=== PATIENT | male | born 1950 | race Caucasian/White ===

== ENCOUNTER → 2017-10-05 09:18 | Outpatient (CLI) | payer MEDICARE, SELFPAY ==
[2017-10-05 12:23] LABS: Anion Gap 7 (5-15); BUN 21 mg/dL (7-18); BUN/Creat Ratio 23.1 RATIO (10-20); Calcium,Total 8.8 mg/dL (8.5-10.1); Chloride 103 mmol/L (98-107); Creatinine, Serum 0.91 mg/dL (0.70-1.30); EST Glomerular Filtration Rate 89 mL/min (>60); Est Glom Filt Rate - Afr Amer 107 mL/min (>60); Glucose 101 mg/dL (74-106); Potassium 4.2 mmol/L (3.5-5.1); Sodium Level 136 mmol/L (136-145)
== END ==
PROVIDERS: Family Provider Family Medicine; PCP Family Medicine; Visit Provider Family Medicine
DX: I10 Essential (primary) hypertension (principal)
CPT/HCPCS: 36415; 80048

== ENCOUNTER → 2018-10-10 11:14 | Outpatient (CLI) | payer MEDICARE, SELFPAY ==
--- NOTE | 2018-10-10 11:19 | RAD_ITS ---
STUDY: X-RAY CHEST REASON FOR EXAM: Male, 68 years old. TECHNIQUE: COMPARISON: None. FINDINGS: The lungs are clear and expanded. There is no demonstrated pleural abnormality. Normal size heart. Normal mediastinum and yadiel. Normal visualized pulmonary arteries. Normal visualized aortic arch and descending thoracic aorta. Normal visualized thoracic spine. Normal visualized ribs, clavicles, and shoulders. There is no demonstrated abnormality of the visualized soft tissue structures of the upper abdomen. RAD/Chest PA and Lateral IMPRESSION: Normal x-ray examination of the chest. Electronically Signed: Philip Carter, at 14:33 EDT Tel , Service support ,
== END ==
PROVIDERS: Family Provider Family Medicine; PCP Family Medicine; Referring Provider Internal Medicine Pulmonary Disease; Visit Provider Internal Medicine Pulmonary Disease
DX: R09.02 Hypoxemia (principal)
CPT/HCPCS: 71046

== ENCOUNTER → 2018-10-29 | Outpatient (CLI) | payer MEDICARE, SELFPAY ==
[2018-10-29 14:05] LABS: Anion Gap 6 (5-15); BUN 15 mg/dL (7-18); BUN/Creat Ratio 15.7 RATIO (10-20); Calcium,Total 8.8 mg/dL (8.5-10.1); Chloride 104 mmol/L (98-107); Cholesterol 173 mg/dL (200); Creatinine, Serum 0.96 mg/dL (0.70-1.30); EST Glomerular Filtration Rate 83 mL/min (>60); Est Glom Filt Rate - Afr Amer 101 mL/min (>60); Glucose 86 mg/dL (74-106); High Density Lipoprotein 35 mg/dL; PSA,Total - Annual Screen 0.53 ng/mL (0.00-4.00); Potassium 4.4 mmol/L (3.5-5.1); Sodium Level 139 mmol/L (136-145); Triglycerides 163 mg/dL; Very Low Density Lipoprotein 33 mg/dL (5-40)
[2018-10-29 14:06] LABS: Vitamin D,25 Hydroxy 20.3 ng/mL (29.95-100.01)
== END | disposition home or self-care (01) ==
LOC: MFPLAB 12:03
PROVIDERS: Family Provider Family Medicine; PCP Family Medicine; Visit Provider Family Medicine
DX: Z00.00 Encounter for general adult medical examination without abnormal findings (principal); Z12.5 Encounter for screening for malignant neoplasm of prostate
CPT/HCPCS: 36415; 80048; 80061; 82306; 84153; G0103

== ENCOUNTER → 2018-12-20 07:40 | Outpatient (CLI) | payer MEDICARE, SELFPAY ==
--- NOTE | 2018-12-20 07:42 | CT_ITS ---
STUDY: CT CHEST WITHOUT CONTRAST REASON FOR EXAM: Male, 68 years old. History of interstitial lung disease. RADIATION DOSAGE (If Supplied By Facility): CTDIvol = ( 17.84 ) mGy, DLP = ( 653.07 ) mGycm TECHNIQUE: Transaxial imaging was performed without the administration of intravenous contrast material. Multiplanar coronal and sagittal images were reformatted. Individualized dose optimization techniques were used for this CT. COMPARISON: None. FINDINGS: Small benign-appearing bilateral axillary lymph nodes. Diffuse increased interstitial markings at the lung bases with evidence of bronchiectasis in keeping with a scarring. This also evidence of the increased reticular nodular pattern in both upper lobes. There is no demonstrated pleural abnormality. There are calcifications of the coronary arteries. There are multiple small lymph nodes within the mediastinum, which are normal in size and morphology most compatible with reactive lymph hyperplasia. Normal hilar regions. Normal unenhanced pulmonary arteries. Normal aorta arch and descending thoracic aorta. There are multi-level degenerative changes of the thoracic spine. Small hiatal hernia. Right renal cysts. CT/Chest without Contrast IMPRESSION: Findings in keeping with chronic interstitial fibrosis more pronounced at the lung bases with localized bronchiectasis. Electronically Signed: Meir Castaneda, at 15:44 EDT , Service support ,
== END ==
PROVIDERS: Family Provider Family Medicine; PCP Family Medicine; Referring Provider Internal Medicine Pulmonary Disease; Visit Provider Internal Medicine Pulmonary Disease
DX: J84.9 Interstitial pulmonary disease, unspecified (principal); R09.02 Hypoxemia; M99.03 Segmental and somatic dysfunction of lumbar region
CPT/HCPCS: 71250

== ENCOUNTER → 2018-12-27 09:07 | Outpatient (CLI) | payer MEDICARE, SELFPAY ==
[2018-12-27 10:45] LABS: CRP 4.21 mg/L (0.0-3.0); Rheumatoid Factor < 10.0 IU/mL (<15)
[2018-12-27 10:48] LABS: Erythrocyte Sedimentation Rate 10 mm/hr (0-20)
[2018-12-28 14:08] LABS: Anti-Scleroderma-70 AB <0.2 AI (0.0-0.9)
[2018-12-29 03:06] LABS: Angiotensin Convert Enzyme < 15 U/L (14-82); Cytoplasmic Ab (C-ANCA) <1:20 titer (Neg:<1:20)
[2018-12-31 10:13] LABS: CCP IgG Antibodies 4 units (0-19); Perinuclear Ab (P-ANCA) <1:20 titer (Neg:<1:20)
[2018-12-31 13:34] LABS: ANTINUCLEAR ANTIBODIES DIRECT Positive (Negative); Anti-dsDNA Ab <1 IU/mL (0-9)
== END ==
PROVIDERS: Family Provider Family Medicine; PCP Family Medicine; Referring Provider Family Medicine; Visit Provider Internal Medicine Pulmonary Disease
DX: R09.02 Hypoxemia (principal); I10 Essential (primary) hypertension
CPT/HCPCS: 36415; 82164; 85652; 86038; 86140; 86200; 86225; 86235; 86256; 86431

== ENCOUNTER → 2019-07-30 10:29 | Outpatient (CLI) | payer MEDICARE, SELFPAY ==
--- NOTE | 2019-07-30 10:33 | RAD_ITS ---
STUDY: X-RAY - ABDOMEN/PELVIS REASON FOR EXAM: Male, 69 years old. Flank pain TECHNIQUE: Single AP view of the abdomen / pelvis. COMPARISON: None. FINDINGS: Mild increased markings at the lung bases suggestive of underlying atelectasis and/or scarring. There is a moderate amount of colonic fecal material. I suspect a 3.7 mm calculus in the midportion of the left ureter overlying the transverse process of the L3 vertebrae on the left side. There are calcified phleboliths in the pelvis. There are mild degenerative changes of the visualized lumbar spine. RAD/Abdomen Single View IMPRESSION: Findings suggestive of a 3.7 mm calculus in the midportion of the left ureter. Electronically Signed: Meir Castaneda, at 14:49 EDT , Service support ,
[2019-07-30 12:13] LABS: Absolute Lymphocyte Count 1.08 X10^3/uL (0.83-4.51); Absolute Neutrophil Count 9.8 X10^3/uL (2.0-7.7); Basophil# 0.03 X10^3/uL; Basophil% 0.3 % (0-1); Eosinophil# 0.03 X10^3/uL; Eosinophils% 0.3 % (0-5); Hematocrit 49.5 % (40-54); Hemoglobin 16.5 g/dL (13.0-16.5); Lymphocyte # 1.08 X10^3/ul (4.0); Lymphocyte % 9.3 % (19-41); Mean Corp Hgb Conc 33.3 g/dL (32-36); Mean Corpuscular Hgb 32.2 pg (27.0-32.0); Mean Corpuscular Volume 96.7 fL (80-94); Mean Platelet Vol. 10.2 fl (6.2-12.0); Monocyte# 0.62 X10^3/uL; Monocyte% 5.3 % (0-10); NRBC Flagged by Analyzer 0 % (0-5); Neutrophil # 9.79 X10^3/uL (2.7-7.7); Neutrophil % 84.1 % (47-70); Platelet Count 284 K/mm3 (150-450); RBC Distribution Width CV 11.9 % (11.6-14.6); RBC Distribution Width SD 42.3 fl (35.1-43.9); Red Blood Count 5.12 M/mm3 (4.6-6.2); White Blood Count 11.6 K/mm3 (4.4-11.0)
[2019-07-30 12:27] LABS: ALB/GLOB Ratio 0.9 RATIO (0.9-2.4); AST(SGOT) 23 U/L (15-37); Alanine Aminotransfer ALT/SGPT 41 U/L (16-61); Albumin, Serum 3.7 g/dL (3.2-5.0); Alkaline Phosphatase 61 U/L (45-117); Anion Gap 5 (5-15); BUN 22 mg/dL (7-18); BUN/Creat Ratio 15.9 RATIO (10-20); Chloride 104 mmol/L (98-107); Creatinine, Serum 1.38 mg/dL (0.70-1.30); EST Glomerular Filtration Rate 54 mL/min (>60); Est Glom Filt Rate - Afr Amer 66 mL/min (>60); Globulin 3.9 g/dL (2.2-4.2); Glucose 119 mg/dL (74-106); Potassium 4.2 mmol/L (3.5-5.1); Protein, Total 7.6 g/dL (6.4-8.2); Sodium Level 137 mmol/L (136-145)
[2019-07-30 12:34] LABS: Hemoglobin A1c 5.9 % (4.2-6.3)
== END ==
PROVIDERS: PCP Family Medicine; Referring Provider Family Medicine; Visit Provider Family Medicine
DX: E11.9 Type 2 diabetes mellitus without complications (principal); R10.9 Unspecified abdominal pain
CPT/HCPCS: 36415; 74018; 80053; 83036; 85025; 87086

== ENCOUNTER → 2019-08-05 10:28 | Outpatient (CLI) | payer MEDICARE, SELFPAY ==
[2019-08-05 12:11] LABS: Anion Gap 6 (5-15); BUN 25 mg/dL (7-18); BUN/Creat Ratio 22.1 RATIO (10-20); Chloride 100 mmol/L (98-107); Creatinine, Serum 1.13 mg/dL (0.70-1.30); EST Glomerular Filtration Rate 69 mL/min (>60); Est Glom Filt Rate - Afr Amer 83 mL/min (>60); Glucose 96 mg/dL (74-106); Potassium 3.7 mmol/L (3.5-5.1); Sodium Level 134 mmol/L (136-145)
== END ==
PROVIDERS: PCP Family Medicine; Referring Provider Family Medicine; Visit Provider Family Medicine
DX: R73.02 Impaired glucose tolerance (oral) (principal)
CPT/HCPCS: 36415; 80048

== ENCOUNTER → 2019-12-25 15:29 | Outpatient (CLI) | payer MEDICARE, SELFPAY ==
--- NOTE | 2019-12-25 15:48 | RAD_ITS ---
STUDY: X-RAY CHEST REASON FOR EXAM: Male, 69 years old. F/U TO PREVIOUS CXR PER PATIENT. TECHNIQUE: Frontal and lateral views of the chest. COMPARISON: 10/10/2018, CT scan 12/20/2018. FINDINGS: Moderate lung volumes. Stable interstitial prominence and fibrosis/scarring in both lung bases. No effusions. Normal size heart. Normal mediastinum and yadiel. Normal visualized pulmonary arteries. Normal visualized aortic arch and descending thoracic aorta. Normal visualized thoracic spine. Normal visualized ribs, clavicles, and shoulders. There is no demonstrated abnormality of the visualized soft tissue structures of the upper abdomen. RAD/Chest PA and Lateral IMPRESSION: No change or acute abnormality. Fibrotic chronic pulmonary disease with scarring in the lung bases. Electronically Signed: Matteo Castro MD at 20:59 EDT , Service support ,
[2019-12-25 19:06] LABS: CRP < 2.90 mg/L (0.0-3.0)
[2019-12-25 19:23] LABS: Erythrocyte Sedimentation Rate 13 mm/hr (0-20)
== END ==
PROVIDERS: PCP Family Medicine; Referring Provider Internal Medicine Pulmonary Disease; Visit Provider Internal Medicine Pulmonary Disease
DX: J84.10 Pulmonary fibrosis, unspecified (principal)
CPT/HCPCS: 36415; 71046; 85652; 86140

== ENCOUNTER → 2020-01-24 08:47 | Outpatient (CLI) | payer MEDICARE, SELFPAY ==
[2020-01-24 11:12] LABS: Vitamin D,25 Hydroxy 70.6 ng/mL
[2020-01-24 11:17] LABS: Anion Gap 4 (5-15); BUN 23 mg/dL (7-18); BUN/Creat Ratio 22.1 RATIO (10-20); Calcium,Total 8.9 mg/dL (8.5-10.1); Chloride 103 mmol/L (98-107); Cholesterol 179 mg/dL (200); Creatinine, Serum 1.04 mg/dL (0.70-1.30); EST Glomerular Filtration Rate 75 mL/min (>60); Est Glom Filt Rate - Afr Amer 91 mL/min (>60); Glucose 82 mg/dL (74-106); High Density Lipoprotein 52 mg/dL; PSA,Total - Annual Screen 0.76 ng/mL (0.00-4.00); Potassium 3.9 mmol/L (3.5-5.1); Sodium Level 136 mmol/L (136-145); Triglycerides 152 mg/dL; Very Low Density Lipoprotein 30 mg/dL (5-40)
== END ==
PROVIDERS: PCP Family Medicine; Referring Provider Family Medicine; Visit Provider Family Medicine
DX: Z00.00 Encounter for general adult medical examination without abnormal findings (principal); E55.9 Vitamin D deficiency, unspecified; I10 Essential (primary) hypertension; Z12.5 Encounter for screening for malignant neoplasm of prostate
CPT/HCPCS: 36415; 80048; 80061; 82306; 84153; G0103

== ENCOUNTER → 2020-04-22 08:08 | Outpatient (CLI) | payer MEDICARE, SELFPAY ==
--- NOTE | 2020-04-22 08:15 | CT_ITS ---
STUDY: CT CHEST WITHOUT CONTRAST REASON FOR EXAM: Male, 69 years old. ? PULMONARY FIBROSIS RADIATION DOSAGE (If Supplied By Facility): CTDIvol = ( 18.76 ) mGy, DLP = ( 677.40 ) mGycm TECHNIQUE: Transaxial imaging was performed without the administration of intravenous contrast material. Multiplanar coronal and sagittal images were reformatted. Individualized dose optimization techniques were used for this CT. COMPARISON: Comparison is made with prior study dated 12/20/2018. FINDINGS: Stable small benign-appearing bilateral axillary lymph nodes. Hyperinflation. Persistent increased interstitial markings at the lung bases suggestive of bibasilar scarring. There has been a mild degree of progression as compared to prior study. Stable mild increased interstitial markings in the upper lobes suggestive of scarring. There is no demonstrated pleural abnormality. There are calcifications of the coronary arteries. Normal mediastinum. Normal hilar regions. Normal unenhanced pulmonary arteries. Normal aorta arch and descending thoracic aorta. There are multi-level degenerative changes of the thoracic spine. There is no demonstrated abnormality of the visualized upper abdomen. CT/Chest without Contrast IMPRESSION: Slight progression in the increased interstitial markings at the lung bases suggestive of progressive scarring. Stable increased markings in the upper lobes. Electronically Signed: Meir Castaneda, at 15:28 EST , Service support ,
== END ==
PROVIDERS: PCP Family Medicine; Referring Provider Internal Medicine Pulmonary Disease; Visit Provider Internal Medicine Pulmonary Disease
DX: J84.10 Pulmonary fibrosis, unspecified (principal)
CPT/HCPCS: 71250

== ENCOUNTER → 2020-05-08 08:40 | Outpatient (CLI) | payer MEDICARE, SELFPAY ==
[2020-05-08 10:06] LABS: AST(SGOT) 17 U/L (15-37); Alanine Aminotransfer ALT/SGPT 41 U/L (16-61); Albumin, Serum 3.6 g/dL (3.2-5.0); Alkaline Phosphatase 58 U/L (45-117); Bilirubin, Direct 0.36 mg/dL (0.00-0.30); Globulin 3.6 g/dL (2.2-4.2); Protein, Total 7.2 g/dL (6.4-8.2)
== END ==
PROVIDERS: PCP Family Medicine; Referring Provider Family Medicine; Visit Provider Internal Medicine Pulmonary Disease
DX: J84.10 Pulmonary fibrosis, unspecified (principal)
CPT/HCPCS: 36415; 80076

== ENCOUNTER 2020-06-18 12:38 | Outpatient (RCR) | payer MEDICARE, SELFPAY ==
[2020-06-18] MEDS: COVID-19 VACC, MRNA(PFIZER)/PF 30 MCG/0.3 ML SYRINGE IM (18:33)
[2020-07-09] MEDS: COVID-19 VACC, MRNA(PFIZER)/PF 30 MCG/0.3 ML SYRINGE IM (17:45)
== END 2020-06-18 23:59 ==
LOC: IMMUN 12:38
PROVIDERS: PCP Family Medicine; Visit Provider Family Medicine
DX: Z23 Encounter for immunization (principal)
CPT/HCPCS: 0001A; 0002A; 91300

== ENCOUNTER → 2020-08-07 08:40 | Outpatient (CLI) | payer SELFPAY ==
[2020-08-07 10:43] LABS: AST(SGOT) 51 U/L (15-37); Alanine Aminotransfer ALT/SGPT 86 U/L (16-61); Albumin, Serum 3.4 g/dL (3.2-5.0); Alkaline Phosphatase 95 U/L (45-117); Bilirubin, Direct 0.28 mg/dL (0.00-0.30); Globulin 4.5 g/dL (2.2-4.2); Protein, Total 7.9 g/dL (6.4-8.2)
== END ==
PROVIDERS: PCP Family Medicine; Visit Provider Family Medicine
DX: R17 Unspecified jaundice (principal)
CPT/HCPCS: 36415; 80076

== ENCOUNTER → 2020-09-15 11:06 | Outpatient (CLI) | payer MEDICARE, SELFPAY ==
[2020-09-15 12:51] LABS: AST(SGOT) 32 U/L (15-37); Alanine Aminotransfer ALT/SGPT 56 U/L (16-61); Albumin, Serum 3.4 g/dL (3.2-5.0); Alkaline Phosphatase 84 U/L (45-117); Bilirubin, Direct 0.23 mg/dL (0.00-0.30); Globulin 4.3 g/dL (2.2-4.2); Protein, Total 7.7 g/dL (6.4-8.2)
== END ==
PROVIDERS: PCP Family Medicine; Referring Provider Family Medicine; Visit Provider Family Medicine
DX: R17 Unspecified jaundice (principal)
CPT/HCPCS: 36415; 80076

== ENCOUNTER → 2020-12-15 09:14 | Outpatient (CLI) | payer MEDICARE, SELFPAY ==
[2020-12-15 09:45] LABS: AST(SGOT) 24 U/L (15-37); Alanine Aminotransfer ALT/SGPT 44 U/L (16-61); Albumin, Serum 3.6 g/dL (3.2-5.0); Alkaline Phosphatase 69 U/L (45-117); Bilirubin, Direct 0.27 mg/dL (0.00-0.30); Globulin 4.4 g/dL (2.2-4.2)
== END ==
PROVIDERS: PCP Family Medicine; Referring Provider Internal Medicine Critical Care Medicine; Visit Provider Internal Medicine Critical Care Medicine
DX: J84.9 Interstitial pulmonary disease, unspecified (principal)
CPT/HCPCS: 36415; 80076

== ENCOUNTER → 2020-12-31 08:17 | Outpatient (CLI) | payer MEDICARE, SELFPAY ==
--- NOTE | 2020-12-31 08:21 | CT_ITS ---
STUDY: CT CHEST WITHOUT CONTRAST REASON FOR EXAM: Male, 70 years old. ILD. Pulmonary fibrosis. Nonsmoker. RADIATION DOSAGE (If Supplied By Facility): CTDIvol = ( 15.81 ) mGy, DLP = ( 463 ) mGycm TECHNIQUE: Transaxial imaging was performed without the administration of intravenous contrast material. Multiplanar coronal and sagittal images were reformatted. Individualized dose optimization techniques were used for this CT. COMPARISON: Comparison is made with prior examination dated 04/22/2020. FINDINGS: Hyperinflation. Stable increased interstitial markings at the lung bases as well as in the upper lobes in keeping with chronic interstitial fibrosis. There has been essentially no change since prior study. There is no demonstrated pleural abnormality. There are calcifications of the coronary arteries. There are multiple small lymph nodes within the mediastinum, which are normal in size and morphology most compatible with reactive lymph hyperplasia. Normal hilar regions. Normal unenhanced pulmonary arteries. Normal aorta arch and descending thoracic aorta. There are multi-level degenerative changes of the thoracic spine. There is no demonstrated abnormality of the visualized upper abdomen. CT/Chest without Contrast IMPRESSION: Stable increased interstitial markings in both lungs worse in the lower lobes as described. This is in keeping with the interstitial fibrosis. Electronically Signed: Meir Castaneda MD at 14:52 EDT , Service support ,
== END ==
PROVIDERS: PCP Family Medicine; Referring Provider Internal Medicine Critical Care Medicine; Visit Provider Internal Medicine Critical Care Medicine
DX: J84.9 Interstitial pulmonary disease, unspecified (principal); J84.170 Interstitial lung disease with progressive fibrotic phenotype in diseases classified elsewhere
CPT/HCPCS: 71250

== ENCOUNTER → 2021-04-02 10:49 | Outpatient (CLI) | payer MEDICARE, SELFPAY ==
[2021-04-02 13:03] LABS: Anion Gap 8 (5-15); BUN 19 mg/dL (7-18); BUN/Creat Ratio 21.5 RATIO (10-20); Calcium,Total 9.1 mg/dL (8.5-10.1); Chloride 105 mmol/L (98-107); Cholesterol 202 mg/dL (200); Creatinine, Serum 0.88 mg/dL (0.70-1.30); EST Glomerular Filtration Rate 91 mL/min (>60); Est Glom Filt Rate - Afr Amer 110 mL/min (>60); Glucose 96 mg/dL (74-106); High Density Lipoprotein 40 mg/dL; Potassium 4.2 mmol/L (3.5-5.1); Sodium Level 138 mmol/L (136-145); Triglycerides 169 mg/dL; Very Low Density Lipoprotein 34 mg/dL (5-40)
[2021-04-02 13:05] LABS: Vitamin D,25 Hydroxy 74.8 ng/mL
== END ==
PROVIDERS: PCP Family Medicine; Referring Provider Family Medicine; Visit Provider Family Medicine
DX: Z00.00 Encounter for general adult medical examination without abnormal findings (principal); E55.9 Vitamin D deficiency, unspecified; I10 Essential (primary) hypertension; Z12.5 Encounter for screening for malignant neoplasm of prostate
CPT/HCPCS: 36415; 80048; 80061; 82306; 84153; G0103

== ENCOUNTER → 2021-11-22 | Outpatient (CLI) | payer MEDICARE, SELFPAY ==
--- NOTE | 2021-11-23 13:21 | PFT ---
INTRODUCTION: The patient is a 71-year-old male that presents for pulmonary function studies secondary to a diagnosis of pulmonary disease. Respiratory therapy reported good patient effort. Bronchodilators were used during testing. INTERPRETATION: Forced expiration spirometry demonstrates no evidence of a large airways obstructive ventilatory defect. There was no significant response to aerosolized bronchodilators. Spirograms are of good quality and plateau normally. Body plethysmography was performed and revealed a decreased TLC to 3.91 L, 70% of predicted, indicative of a mild restrictive ventilatory impairment. Diffusing capacity by single breath CO is reduced at 40% of predicted. IMPRESSION: Mild restrictive ventilatory impairment with disproportionate reduction in diffusing capacity.
== END | disposition home or self-care (01) ==
LOC: PSN 10:41
PROVIDERS: PCP Family Medicine; Referring Provider Internal Medicine Critical Care Medicine; Visit Provider Internal Medicine Critical Care Medicine
DX: J84.9 Interstitial pulmonary disease, unspecified (principal)
CPT/HCPCS: 94060; 94726; 94729

== ENCOUNTER → 2022-04-05 | Outpatient (CLI) | payer MEDICARE, SELFPAY ==
[2022-04-05 15:44] LABS: Anion Gap 6 (5-15); BUN 21 mg/dL (7-18); BUN/Creat Ratio 22.4 RATIO (10-20); Calcium,Total 9.3 mg/dL (8.5-10.1); Chloride 102 mmol/L (98-107); Cholesterol 183 mg/dL (200); Creatinine, Serum 0.94 mg/dL (0.70-1.30); EST Glomerular Filtration Rate 85 mL/min (>60); Est Glom Filt Rate - Afr Amer 102 mL/min (>60); Glucose 85 mg/dL (74-106); High Density Lipoprotein 40 mg/dL; PSA,Total - Annual Screen 6.28 ng/mL (0.00-4.00); Potassium 4.5 mmol/L (3.5-5.1); Sodium Level 139 mmol/L (136-145); Triglycerides 124 mg/dL; Very Low Density Lipoprotein 25 mg/dL (5-40)
[2022-04-05 15:55] LABS: Vitamin D,25 Hydroxy 102.4 ng/mL
== END | disposition home or self-care (01) ==
LOC: MFPLAB 11:33
PROVIDERS: PCP Family Medicine; Referring Provider Family Medicine; Visit Provider Family Medicine
DX: Z00.00 Encounter for general adult medical examination without abnormal findings (principal); Z12.5 Encounter for screening for malignant neoplasm of prostate; I10 Essential (primary) hypertension
CPT/HCPCS: 36415; 80048; 80061; 82306; 84153; G0103

== ENCOUNTER → 2022-05-24 | Outpatient (CLI) | payer MEDICARE, SELFPAY ==
--- NOTE | 2022-05-24 08:02 | CT_ITS ---
STUDY: CT ABDOMEN AND PELVIS WITHOUT CONTRAST REASON FOR EXAM: Male, 71 years old. GROSS HEMATURIA. Elevated PSA. History of kidney stones. RADIATION DOSAGE (If Supplied By Facility): CTDIvol = ( 13.88 ) mGy, DLP = ( 722.41 ) mGycm TECHNIQUE: Transaxial images were obtained from the dome of the diaphragm to the symphysis pubis without oral contrast, and without intravenous contrast. Sagittal and coronal images were reconstructed. Individualized dose optimization techniques were used for this CT. COMPARISON: None. FINDINGS: Increased linear markings with areas of confluence at the lung bases with subpleural blebs suggestive of a chronic scarring. Coronary artery calcification. Normal liver. Normal gallbladder and extrahepatic biliary system. Normal spleen. Normal pancreas. Normal bilateral adrenal glands. There is a 1.8 cm x 1.7 cm cyst in the anterior lateral aspect of the right kidney in its midportion. There is also evidence of 1.4 cm well-defined hypodense nodule in the posteromedial aspect of the upper pole of the right kidney. This most likely represents a cyst although correlation with ultrasound is recommended for further evaluation. There is a 1.2 cm calculus in the right renal pelvis causing a mild degree of right hydronephrosis. Calcific plaque in the posterior branch of the left intrarenal arterial branches. There is a 3 mm nonobstructive calculus in the lower pole calyx of the left kidney. There is a small hiatal hernia. Normal small intestine. Normal colon. The appendix is visualized and appears normal. There is scattered atherosclerotic calcification of the abdominal aorta, without a demonstrated aneurysm. Normal inferior vena cava. Normal retroperitoneum. Diffuse bladder wall thickening. There is prostatic enlargement. This measures 4.1 cm x 4.7 cm. A central calcification. There is indentation at the bladder base due to the prostatic enlargement. There is a right-sided inguinal hernia containing adipose tissue. Small bilateral inguinal lymph nodes.. Normal osseous structures. CT/Abdomen/Pelvis without Cont IMPRESSION: 1.2 cm calculus in the right renal pelvis causing mild right hydronephrosis. Findings suggestive of a small right renal cysts. Nonobstructive calculus in the lower pole calyx of the left kidney. Prostatic enlargement with calcification and indentation at the bladder base. Bladder wall thickening. Findings suggestive of scarring at the lung bases. Electronically Signed: Meir Castaneda MD at 9:15 EST ,
== END | disposition home or self-care (01) ==
LOC: CT 08:00
PROVIDERS: PCP Family Medicine; Referring Provider Urology; Visit Provider Urology
DX: R31.0 Gross hematuria (principal)
CPT/HCPCS: 74176

== ENCOUNTER → 2022-05-25 | Outpatient (CLI) | payer MEDICARE, SELFPAY ==
--- NOTE | 2022-05-25 07:47 | EKG12_ITS ---
Test Reason : PRE OP Blood Pressure : / mmHG Vent. Rate : 078 BPM Atrial Rate : 078 BPM P-R Int : 142 ms QRS Dur : 090 ms QT Int : 368 ms P-R-T Axes : 041 106 -14 degrees QTc Int : 419 ms Normal sinus rhythm T wave abnormality, consider inferior ischemia Abnormal ECG When compared with ECG of 29-MAR-2002 16:13, QRS axis Shifted right T wave inversion now evident in Inferior leads Nonspecific T wave abnormality now evident in Lateral leads Confirmed by KARRIE ADAMS, CLARA ([id number]), purchasing expeditor MARY TERAN ([id number]) on 05/26/2022 5:45:35 AM Referred By: Wilber Arias Confirmed By:CLARA YOON MD
[2022-05-25 09:02] LABS: Hematocrit 52.3 % (40-54); Hemoglobin 17.3 g/dL (13.0-16.5); Mean Corp Hgb Conc 33.1 g/dL (32-36); Mean Corpuscular Hgb 31.9 pg (27.0-32.0); Mean Corpuscular Volume 96.3 fL (80-94); Mean Platelet Vol. 10.1 fl (6.2-12.0); Platelet Count 288 K/mm3 (150-450); RBC Distribution Width CV 12.5 % (11.6-14.6); RBC Distribution Width SD 44.4 fl (35.1-43.9); Red Blood Count 5.43 M/mm3 (4.6-6.2)
[2022-05-25 09:29] LABS: Anion Gap 4 (5-15); BUN 18 mg/dL (7-18); Calcium,Total 9.3 mg/dL (8.5-10.1); Chloride 103 mmol/L (98-107); EST Glomerular Filtration Rate 78 mL/min (>60); Est Glom Filt Rate - Afr Amer 95 mL/min (>60); Glucose 147 mg/dL (74-106); Potassium 3.9 mmol/L (3.5-5.1); Sodium Level 140 mmol/L (136-145)
== END | disposition home or self-care (01) ==
LOC: PSN 07:46
PROVIDERS: PCP Family Medicine; Referring Provider Urology; Visit Provider Urology
DX: Z01.818 Encounter for other preprocedural examination (principal)
CPT/HCPCS: 36415; 80048; 85027; 93005

== ENCOUNTER → 2022-06-10 | Outpatient (CLI) | payer MEDICARE, SELFPAY ==
--- NOTE | 2022-06-10 07:16 | ECHOCS_ITS ---
Reason For Study: Abnormal EKG Procedure This was a 2D Doppler, Color Flow transthoracic echocardiogram. The study was technically difficult. Contrast injection was performed. Exam performed in department. Left Ventricle Normal size and thickness. The left ventricular ejection fraction is 65 %. Normal diastology for age. Right Ventricle Normal right ventricle. Atria The left atrium is severely enlarged. Normal right atrium. Bubble contrast study is negative for PFO/ASD. Mitral Valve Trivial mitral valve insufficiency. Tricuspid Valve Trivial tricuspid valve insufficiency. Normal pulmonary artery pressure. Aortic Valve Trisinus/trileaflet aortic valve. Mild focal aortic valve thickening. Pulmonic Valve The pulmonic valve is not well visualized. Trivial pulmonic valve insufficiency. Great Vessels Normal sized aortic root. Pericardium/Pleural No pericardial effusion. Medication 20 gauge I.V. with prn adaptor inserted into right arm. Diluted definity 2.5ml given slow IV push to enhance endocardial definition. Performed a rapid injection of agitated mix of 9 cc saline and 1cc air to assess for atrial septal defect. MMode/2D Measurements & Calculations LVIDd: 3.9 cm IVSd: 0.90 cm LA dimension: 5.1 cm LVIDs: 2.8 cm LVPWd: 0.98 cm FS: 27.8 % LAV(MOD-bp): 33.9 ml LA A4 area: 18.5 cm2 RA A4 area: 10.4 cm2 LAV(MOD-bp) Indexed: 17.4 ml/m2 LAV(MOD-sp2): 26.7 ml LAV(MOD-sp4): 44.5 ml Time Measurements MV dec time: 0.25 sec Doppler Measurements & Calculations MV E max kaushik: 66.3 cm/sec Lat Peak E' Kaushik: 5.6 cm/sec Med Peak E' Kaushik: 5.6 cm/sec MV A max kaushik: 91.0 cm/sec E/E' lat: 11.7 E/E' med: 11.7 MV E/A: 0.73 MV V2 max: 97.9 cm/sec MV P1/2t max kaushik: 82.6 cm/sec Ao V2 max: 150.1 cm/sec MV max P.8 mmHg MV P1/2t: 88.9 msec Ao max P.0 mmHg MV V2 mean: 48.3 cm/sec MV dec slope: 272.1 cm/sec2 Ao V2 mean: 104.6 cm/sec MV mean P.1 mmHg Ao mean P.0 mmHg MV V2 VTI: 25.1 cm MVA(P1/2t): 2.5 cm2 Ao V2 VTI: 33.0 cm AV (velocity ratio): 0.69 LV V1 max: 111.4 cm/sec MR max kaushik: 557.1 cm/sec PA V2 max: 117.2 cm/sec LV V1 max P.0 mmHg MR max P.1 mmHg LV V1 mean P.3 mmHg LV V1 mean: 68.4 cm/sec LV V1 VTI: 22.8 cm TR max kaushik: 276.8 cm/sec TR max P.6 mmHg ECHO/Echo Complete W/ Contrast Interpretation Summary The left ventricular ejection fraction is 65 %. The left atrium is severely enlarged. Ordering Physician: Anastacio Banegas Referring Physician: Anastacio Banegas Performed By: Wyatt Lowery [facility]
--- NOTE | 2022-06-13 12:23 | STRESSREP_ITS ---
Stress Test Report Date: 06/10/2022 Procedure: Pharmacologic stress nuclear imaging study Indications: Abnormal EKG Consent: Per the patient Procedure: The patient underwent pharmacologic (Regadenoson 0.4mg ) evaluation with a peak heart rate of 93 beats per minute (62%predicted maximal heart rate) and a peak blood pressure of 148/82 mmHg. The baseline ECG demonstrated normal sinus rhythm. The peak pharmacologic ECG demonstrated no ischemic changes. There were no cardiac dysrhythmias pretest, during pharmacologic infusion, or recovery. There was no complaint of chest discomfort during pharmacologic infusion or recovery. The patient was injected with 13.4 millicuries of technetium 99m Cardiolite and subsequently rest SPECT Cardiolite nuclear imaging was obtained in the horizontal long, vertical long, and short axis views. The patient underwent pharmacologic (Regadenoson) evaluation. The patient was injected with 44.5 millicuries of technetium 99m Cardiolite and subsequently stress SPECT Cardiolite nuclear imaging was obtained in the horizontal long, vertical long, and short axis views. A gated Cardiolite study at peak stress was obtained. The examination was stopped secondary to completion of protocol. Rest and stress SPECT Cardiolite nuclear imaging status post realignment, normalization, and attenuation correction demonstrate no fixed or reversible perfusion defects. There is end systolic thickening and brightening. The gated Cardiolite study demonstrates myocardial thickening and inward wall motion. The reported LVEF is 83%. Impression: 1. Pharmacologic (Regadenoson) evaluation 2. Peak pharmacologic ECG with no ischemic change. 3. There were no cardiac dysrhythmias pretest, during pharmacologic infusion, or recovery. 5. No fixed or reversible perfusion defects. 6. The gated Cardiolite study reports an LVEF of 83%. This note was generated with [employer] software. It may contain incorrect words, spelling, and punctuation that were not noted in checking the note before signing.
== END | disposition home or self-care (01) ==
PROVIDERS: PCP Family Medicine; Referring Provider Internal Medicine Cardiovascular Disease; Visit Provider Internal Medicine Cardiovascular Disease
DX: R94.31 Abnormal electrocardiogram [ECG] [EKG] (principal)
CPT/HCPCS: 78452; 93017; 93306; A9500; Q9957; A4216; C8929; J2785

== ENCOUNTER → 2022-06-27 | Outpatient (CLI) | payer MEDICARE, SELFPAY ==
[2022-06-27 14:23] LABS: Hemoglobin 17.6 g/dL (13.0-16.5); Mean Corp Hgb Conc 33.8 g/dL (32-36); Mean Corpuscular Hgb 32.2 pg (27.0-32.0); Mean Corpuscular Volume 95.2 fL (80-94); Mean Platelet Vol. 9.4 fl (6.2-12.0); Platelet Count 272 K/mm3 (150-450); RBC Distribution Width CV 12.1 % (11.6-14.6); RBC Distribution Width SD 42.2 fl (35.1-43.9); Red Blood Count 5.46 M/mm3 (4.6-6.2)
[2022-06-27 15:00] LABS: Anion Gap 5 (5-15); BUN 19 mg/dL (7-18); BUN/Creat Ratio 20.6 RATIO (10-20); Calcium,Total 9.6 mg/dL (8.5-10.1); Chloride 102 mmol/L (98-107); Creatinine, Serum 0.92 mg/dL (0.70-1.30); EST Glomerular Filtration Rate 86 mL/min (>60); Est Glom Filt Rate - Afr Amer 104 mL/min (>60); Glucose 93 mg/dL (74-106); PSA,Total- Diagnostic 1.95 ng/mL (0.0-4.0); Potassium 4.5 mmol/L (3.5-5.1); Sodium Level 137 mmol/L (136-145)
== END | disposition home or self-care (01) ==
LOC: LAB 14:10
PROVIDERS: PCP Family Medicine; Referring Provider Urology; Visit Provider Urology
DX: Z01.812 Encounter for preprocedural laboratory examination (principal); R97.20 Elevated prostate specific antigen [PSA]
CPT/HCPCS: 36415; 80048; 84153; 85027

== ENCOUNTER → 2023-04-13 | Outpatient (CLI) | payer MEDICARE, SELFPAY ==
--- OUTSIDE RECORDS SUMMARY | 2023-04-13 12:47 | XMS RPT_ITS | CCD ---
Author Name Unknown Address [address] [place] [address] Organization [facility] Results Test Name Value Interpretation Reference Range Facil ity Progress note 05-28-2021 Note Date & Type Note Facility 05-28-2021 Note HNO ID: [id number] Author: Keren Figueroa PA-C Service: ? Author Type: Physician Event Marketing Coordinator Type: Progress Notes Filed: 05/31/2021 4:14 PM Note Text: FOLLOW UP VISIT - HERNIA NAME: Vinayak Summers CLINIC NO.: [id number] DATE OF SERVICE: 05/26/2021 : 1950 REFERRING PHYSICIAN: Jean-Paul Negro MD, Vinayak is a patient I am following for a left inguinal hernia. Dr. Powers performed an open left inguinal hernia repair with mesh on 05/19/21. The patient currently notes no major complaints. his appetite has been good. he denies fever, chills or abdominal pain. he does note some mild incisional discomfort. he notes no bulges at the operative site VITALS: Blood pressure 136/78, pulse 89, temperature 36.9 ?C (98.4 ?F), height 167.6 cm (5' 6 ), weight 86.1 kg (189 lb 12.8 oz), SpO2 100 %. General: patient is alert, cooperative, pleasant and in no acute distress On examination, the abdomen is benign. The incision is healing well without signs of infection or inflammation. There are no signs of recurrent hernia formation. Assessment IMPRESSION: status post open left inguinal hernia repair with mesh PLAN: If the patient notes any problems, he should contact me immediately. he may return to his regular activities as tolerated, with the exception of no lifting greater than 20 pounds for the next 7 weeks. If patient feels the urge to cough or sneeze, they should brace against the repair site with their hands or a pillow. Diagnoses: (Z98.890, Z87.19) S/P hernia repair (primary encounter diagnosis) Return to Clinic: The patient is instructed to follow-up with me as needed. Patient verbalized understanding of all above and agreed with the plan. Keren Figueroa PA-C [facility] Clinical Note 05-19-2021 Note Date & Type Note Facility 05-19-2021 Note HNO ID: [id number] Author: Raphael Garnett RN Service: ? Author Type: Registered Nurse Type: Nursing Progress Note Filed: 05/19/2021 12:26 PM Note Text: During extubation and removal of tape patients lip started to bleed on [facility] right [facility] Clinical Note 05-19-2021 Note Date & Type Note Facility 05-19-2021 Note HNO ID: [id number] Author: Amanda Duff APRN.CRNA Service: ? Author Type: Nurse Rn Diabetes Type: Anesthesia Procedure Notes Filed: 05/19/2021 11:07 AM Note Text: ANESTHESIOLOGY PROCEDURE NOTE Airway General Information Procedure Start Time/Medication Administration: 05/19/2021 11:01 AM Patient location during procedure: OR Timeout Performed Pre-procedure: timeout performed Consent Obtained: Yes Patient identity confirmed: arm band, patient and family Staffing BULK PALLET BUILDER: Amanda Duff APRN.BULK PALLET BUILDER Performed by: BULK PALLET BUILDER Indications and Patient Condition Preoxygenated: yes Patient position: sniffing Indications for airway management: anesthesia anesthesia circuit Method: asleep Final Airway Details Final airway type: endotracheal airway Final Endotracheal Airway: ETT Cuffed: yes Successful intubation technique: direct laryngoscopy Devices used: intubating stylet Endotracheal tube insertion site: oral Blade: Jeremie Blade size: #4 ETT size (mm): 7.5 Measured from: lips Measurement (cm): 22 Placement verified by: capnometry Cormack-Lehane Classification: grade I - full view of glottis Number of attempts at approach: 1 SIGNATURE: Amanda Duff APRN.BULK PALLET BUILDER PATIENT NAME: Vinayak Summers DATE: May 19, 2021 TIME: 11:06 AM CSN: [id number] [facility] Progress note 04-27-2021 Note Date & Type Note Facility 04-27-2021 Note HNO ID: [id number] Author: Jadon Powers MD Service: ? Author Type: Physician Type: Progress Notes Filed: 04/27/2021 4:21 PM Note Text: HISTORY AND PHYSICAL Vinayak Summers 1950 REFERRING PHYSICIAN: Jadon Powers MD CHIEF COMPLAINT: Follow Up (review CT scan) HPI: Vinayak is a 70 year old male with a complaint of a bulge and discomfort in his left inguinal region. The patient notes discomfort in this area with lifting, straining and coughing. The symptoms have increased, over the past few months. ? The patient notes no symptoms of bowel obstruction and denies nausea or vomiting. The patient was seen by his primary care physician who felt the patient has a hernia. Vinayak was referred for evaluation and treatment. CT scan did confirm a left inguinal hernia with the sigmoid colon located within it. PAST MEDICAL HISTORY Diagnosis Date - Encounter for screening colonoscopy 02/15/2016 - Essential hypertension - Other symptoms involving digestive system(787.99) - Unspecified constipation PAST SURGICAL HISTORY Procedure Laterality Date - COLONOSCOP W/ OR W/O [facility] SPEC 01/26/06 - COLONOSCOP W/ OR W/O [facility] SPEC 02/15/2016 - REPAIR UMBILICAL LANA,5+Y/O,REDUC 03/18 Hernia repair, umbilical >5yr Current Outpatient Medications Medication Sig - lisinopril (ZESTRIL, PRINIVIL) 10 mg tablet Take by mouth once daily. - docosahexaenoic acid/epa (FISH OIL ORAL) Take by mouth once daily. - cholecalciferol, vitamin D3, (VITAMIN D3 ORAL) Take by mouth once daily. - lisinopril-hydrochlorothiazide (PRINZIDE,ZESTORETIC) 10-12.5 mg per tablet - MULTI-VITAMIN ORAL Take by mouth. - OFEV 100 mg capsule once daily. (Patient not taking: Reported on 04/27/2021 ) No current facility-administered medications for this visit. ALLERGIES: Patient has no known allergies. PERSONAL HISTORY: Social History Tobacco Use - Smoking status: Never Smoker - Smokeless tobacco: Never Used Vaping Use - Vaping Use: Never used Substance Use Topics - Alcohol use: Not Currently Comment: rarely a wine cooler - Drug use: No FAMILY HISTORY: FAMILY HISTORY Problem Relation Age of Onset - Alcohol/Drug Brother - COPD Brother REVIEW OF SYSTEMS: General: The patient denies fatigue, denies weight loss, denies weight gain, denies feeling hot, and denies feelings of cold. Eyes: The patient denies glaucoma, denies eye injury/surgery, does not wear glasses or contacts. Ear/Nose/Throat: The patient denies allergies, denies hayfever, denies ear infections, and denies bloody noses. Cardiovascular: The patient denies chest pain, denies heart disease, NOTES high blood pressure,denies cardiac stent, denies prior heart attack, denies irregular heart beat, denies high cholesterol, denies poor circulation, denies heart failure, other cardiac issues, denies claudication, denies cold feet, denies peripheral arterial stent. Respiratory: The patient denies tuberculosis, denies pneumonia, denies frequent cough, denies pulmonary embolism, denies shortness of breath, and denies coughing up blood, NOTES other lung problems: Gastrointestinal: The patient denies difficulty swallowing, denies acid reflux, denies ulcers, denies vomiting, denies jaundice/hepatitis, denies gallbladder problems, denies black or tarry stools, denies hemorrhoids, denies bleeding from rectum, denies diverticulitis, denies constipation, denies diarrhea, denies loss of stool control, and denies hernias. Kidney/Bladder: The patient denies kidney stones, denies urine infections, and denies bloody urine. Skin: The patient denies a history of skin cancer, denies bleeding/changing moles, and denies a history of skin rash. Neurologic: The patient denies a history of epilepsy/convulsions, denies headaches, denies head/spinal injuries, and denies stroke/TIA. Psychiatric: The patient denies psychiatric medications, denies depression, and denies voices, denies substance abuse. Endocrine: The patient denies thyroid disorders, denies diabetes, and denies hormonal problems. Hematologic: The patient denies a history of bruising, denies bleeding, and denies anemia, denies blood clots. Infections: The patient denies a history of measles and mumps, denies rheumatic fever, and denies sexually transmitted diseases. Musculoskeletal: The patient denies back pain/injury, denies back problems, denies sciatica, denies knee/foot trouble, denies arthritis, or denies gout. ? PHYSICAL EXAMINATION: General: The patient is 70 year old male, well nourished, well hydrated in no acute distress. The patient is oriented to time, place, and person. VITALS: Blood pressure 126/80, pulse 89, temperature 37.1 ?C (98.7 ?F), weight 86.2 kg (190 lb), SpO2 100 %. There is no height or weight on file to calculate BMI. HEENT: Normal cephalic, ataumatic, pupils are equally round, sclera are anicteric, mucous membranes are moist, oropharynx is cl (more content not included)... [facility] Progress note 04-14-2021 Note Date & Type Note Facility 04-14-2021 Note HNO ID: [id number] Author: RT Blake(R) Service: ? Author Type: Soldering Machine Feeder Type: Progress Notes Filed: 04/14/2021 3:12 PM Note Text: Radiology Service Progress Note PATIENT NAME: Vinayak Summers DATE OF SERVICE: April 14, 2021 TIME: 3:12 PM PATIENT IDENTITY VERIFICATION COMPLETED USING TWO (2) IDENTIFIERS: Name and Date of confirmed by patient verbally. FALL SCREENING: Has the patient had 2 falls in the last year or 1 fall with injury or currently using an Ambulatory Assistive Device (Walker, Cane, Wheelchair, Crutches, etc.)? No PATIENT GENDER DATA: Male PATIENT RELEVANT IMPLANT DATA REVIEWED: Not Applicable RADIOLOGY DEPARTMENT: CT; Exam(s) Completed: Pelvis PERIPHERAL IV DATA: Not applicable SIGNED BY: RT Levi(R) April 14, 2021 3:12 PM [facility] Progress note 04-08-2021 Note Date & Type Note Facility 04-08-2021 Note HNO ID: [id number] Author: Jadon Powers MD Service: ? Author Type: Physician Type: Progress Notes Filed: 04/13/2021 8:34 AM Note Text: HISTORY AND PHYSICAL Vinayak Summers 1950 REFERRING PHYSICIAN: Jean-Paul Negro MD CHIEF COMPLAINT: Consult and Hernia HPI: Vinayak is a 70 year old male with a complaint of a bulge and discomfort in his left inguinal region. The patient notes discomfort in this area with lifting, straining and coughing. The symptoms have increased, over the past few months. The patient notes no symptoms of bowel obstruction and denies nausea or vomiting. The patient was seen by his primary care physician who felt the patient has a hernia. Vinayak was referred for evaluation and treatment. The patient is being seen by me today at the request of Dr. Jean-Paul Negro MD, MD for my opinion and advice regarding Irreducible left inguinal hernia (primary encounter diagnosis). PAST MEDICAL HISTORY Diagnosis Date - Encounter for screening colonoscopy 02/15/2016 - Essential hypertension - Other symptoms involving digestive system(787.99) - Unspecified constipation PAST SURGICAL HISTORY Procedure Laterality Date - COLONOSCOP W/ OR W/O [facility] SPEC 01/26/06 - COLONOSCOP W/ OR W/O [facility] SPEC 02/15/2016 - REPAIR UMBILICAL LANA,5+Y/O,REDUC 03/18 Hernia repair, umbilical >5yr Current Outpatient Medications Medication Sig - lisinopril (ZESTRIL, PRINIVIL) 10 mg tablet Take by mouth once daily. - OFEV 100 mg capsule once daily. - docosahexaenoic acid/epa (FISH OIL ORAL) Take by mouth once daily. - cholecalciferol, vitamin D3, (VITAMIN D3 ORAL) Take by mouth once daily. - MULTI-VITAMIN ORAL Take by mouth. - enteric contrast (will be provided with radiology test) For CT PELVIS WO IVCON order Administer, As Directed One Time Only, via Oral, Rectal, both Oral and Rectal, Enteric Tube, Stoma or Indwelling Catheter, Enteric Contrast as designated per enteric contrast guidelines - lisinopril-hydrochlorothiazide (PRINZIDE,ZESTORETIC) 10-12.5 mg per tablet (Patient not taking: Reported on 04/08/2021 ) No current facility-administered medications for this visit. ALLERGIES: Patient has no known allergies. PERSONAL HISTORY: Social History Tobacco Use - Smoking status: Never Smoker - Smokeless tobacco: Never Used Substance Use Topics - Alcohol use: Not Currently Comment: rarely a wine cooler - Drug use: No FAMILY HISTORY: FAMILY HISTORY Problem Relation Age of Onset - Alcohol/Drug Brother - COPD Brother REVIEW OF SYMPTOMS: The review of systems data was entered by the nurse and reviewed by nm Nursing Notes: Elizabeth Palacios Ma 04/08/2021 3:55 PM Signed REVIEW OF SYSTEMS: General: The patient denies fatigue, denies weight loss, denies weight gain, denies feeling hot, and denies feelings of cold. Eyes: The patient denies glaucoma, denies eye injury/surgery, does not wear glasses or contacts. Ear/Nose/Throat: The patient denies allergies, denies hayfever, denies ear infections, and denies bloody noses. Cardiovascular: The patient denies chest pain, denies heart disease, NOTES high blood pressure,denies cardiac stent, denies prior heart attack, denies irregular heart beat, denies high cholesterol, denies poor circulation, denies heart failure, other cardiac issues, denies claudication, denies cold feet, denies peripheral arterial stent. Respiratory: The patient denies tuberculosis, denies pneumonia, denies frequent cough, denies pulmonary embolism, denies shortness of breath, and denies coughing up blood, NOTES other lung problems: Gastrointestinal: The patient denies difficulty swallowing, denies acid reflux, denies ulcers, denies vomiting, denies jaundice/hepatitis, denies gallbladder problems, denies black or tarry stools, denies hemorrhoids, denies bleeding from rectum, denies diverticulitis, denies constipation, denies diarrhea, denies loss of stool control, and denies hernias. Kidney/Bladder: The patient denies kidney stones, denies urine infections, and denies bloody urine. Skin: The patient denies a history of skin cancer, denies bleeding/changing moles, and denies a history of skin rash. Neurologic: The patient denies a history of epilepsy/convulsions, denies headaches, denies head/spinal injuries, and denies stroke/TIA. Psychiatric: The patient denies psychiatric medications, denies depression, and denies voices, denies substance abuse. Endocrine: The patient denies thyroid disorders, denies diabetes, and denies hormonal problems. Hematologic: The patient denies a history of bruising, denies bleeding, and denies anemia, denies blood clots. Infections: The patient denies a history of measles and mumps, denies rheumatic fever, and denies sexually transmitted diseases. Musculoskeletal: The patient denies back pain/injury, denies back problems, denies sciatica, denies knee/foot trouble, denies arthritis, or jennifer (more content not included)... [facility] Summary Purpose Family History No Family History Records FoundNo Family History Records Found Advance Directives No Advanced Directives Records FoundNo Advanced Directives Records Found Additional Source Comments (unrecognized sect ion and content) No Status Records FoundNo Status Records Found INFORMATION SOURCE (unrecogn ized section and content) DATE CREATED AUTHOR AUTHOR'S ORGANIZ ATION 07/06/2021 [facility] FOR RECORDS PERTAINING TO PATIENTS WHO ARE OR HAVE BEEN ENROLLED IN A CHEMICAL DEPENDENCY/SUBSTANCEABUSE PROGRAM, SOME INFORMATION MAY BE OMITTED. This clinical summary was aggregated from multiple sources. Caution should be exercised in using it in the provision of clinical care. This summary normalizes information from multiple sources, and as a consequence, information in this document may materially change the coding, format and clinical context of patient data. In addition, data may be omitted in some cases. CLINICAL DECISIONS SHOULD BE BASED ON THE PRIMARY CLINICAL RECORDS. [facility] [employer] provides no warranty or guarantee of the accuracy or completeness of information in this document.
[2023-04-13 15:59] LABS: Anion Gap 4 (5-15); BUN 14 mg/dL (7-18); BUN/Creat Ratio 15.2 RATIO (10-20); Chloride 102 mmol/L (98-107); Cholesterol 189 mg/dL (200); Creatinine, Serum 0.92 mg/dL (0.70-1.30); EST Glomerular Filtration Rate 86 mL/min (>60); Est Glom Filt Rate - Afr Amer 104 mL/min (>60); Glucose 95 mg/dL (74-106); High Density Lipoprotein 40 mg/dL; PSA,Total- Diagnostic 0.88 ng/mL (0.0-4.0); Potassium 4.4 mmol/L (3.5-5.1); Sodium Level 138 mmol/L (136-145); Triglycerides 181 mg/dL; Very Low Density Lipoprotein 36 mg/dL (5-40)
== END | disposition home or self-care (01) ==
LOC: MTLAB 12:34
PROVIDERS: PCP Family Medicine; Referring Provider Family Medicine; Visit Provider Family Medicine
DX: Z00.00 Encounter for general adult medical examination without abnormal findings (principal); R97.20 Elevated prostate specific antigen [PSA]; Z79.899 Other long term (current) drug therapy
CPT/HCPCS: 36415; 80048; 80061; 84153

== ENCOUNTER → 2023-06-16 | Outpatient (CLI) | payer MEDICARE, SELFPAY ==
--- OUTSIDE RECORDS SUMMARY | 2023-06-16 09:57 | XMS RPT_ITS | CCD ---
Author Name Unknown Address [address] [place] [address] Organization [facility] Results Test Name Value Interpretation Reference Range Facil ity Progress note 05-28-2021 Note Date & Type Note Facility 05-28-2021 Note HNO ID: [id number] Author: Keren Figueroa PA-C Service: ? Author Type: Physician Carton Making Machine Operator Type: Progress Notes Filed: 05/31/2021 4:14 PM Note Text: FOLLOW UP VISIT - HERNIA NAME: Vinayak Summers CLINIC NO.: [id number] DATE OF SERVICE: 05/26/2021 : 1950 REFERRING [...] agreed with the plan. Keren Figueroa PA-C [facility] Clinical Note 05-19-2021 Note Date & Type Note Facility 05-19-2021 Note HNO ID: [id number] Author: Raphael Garnett RN Service: ? Author Type: Registered Nurse Type: Nursing Progress Note Filed: 05/19/2021 12:26 PM Note Text: During extubation and removal of tape patients lip started to bleed on [facility] right [facility] Clinical Note 05-19-2021 Note Date & Type Note Facility 05-19-2021 Note HNO ID: [id number] Author: Amanda Duff APRN.CRNA Service: ? Author Type: Nurse Hand Cigar Maker Type: Anesthesia Procedure Notes Filed: 05/19/2021 11:07 AM Note Text: ANESTHESIOLOGY PROCEDURE NOTE Airway General Information Procedure Start Time/Medication Administration: 05/19/2021 11:01 AM Patient location during procedure: OR Timeout Performed Pre-procedure: timeout performed Consent Obtained: Yes Patient identity confirmed: arm band, patient and family Staffing DIAMOND SIZER AND SORTER: Amanda Duff APRN.DIAMOND SIZER AND SORTER Performed by: DIAMOND SIZER AND SORTER Indications and Patient Condition Preoxygenated: yes Patient [...] attempts at approach: 1 SIGNATURE: Amanda Duff APRN.DIAMOND SIZER AND SORTER PATIENT NAME: Vinayak Summers DATE: May 19, 2021 TIME: 11:06 AM CSN: [id number] [facility] Progress note 04-27-2021 Note Date & Type Note Facility 04-27-2021 Note HNO ID: [id number] Author: Jadon Powers MD Service: ? Author [...] Laterality Date - COLONOSCOP W/ OR W/O [facility] SPEC 01/26/06 - COLONOSCOP W/ OR W/O [facility] SPEC 02/15/2016 - REPAIR UMBILICAL LANA,5+Y/O,REDUC 03/18 [...] oropharynx is cl (more content not included)... [facility] Progress note 04-14-2021 Note Date & Type Note Facility 04-14-2021 Note HNO ID: [id number] Author: RT Blake(R) Service: ? Author Type: Foreign Exchange Position Clerk Type: Progress Notes Filed: 04/14/2021 3:12 PM [...] RT Levi(R) April 14, 2021 3:12 PM [facility] Progress note 04-08-2021 Note Date & Type Note Facility 04-08-2021 Note HNO ID: [id number] Author: Jadon Powers MD Service: ? Author [...] entered by the nurse and reviewed by ny Nursing Notes: Elizabeth Palacios Ma 04/08/2021 3:55 [...] arthritis, or jennifer (more content not included)... [facility] Summary Purpose Family History No Family History Records FoundNo Family History Records Found Advance Directives No Advanced Directives Records FoundNo Advanced Directives Records Found Additional Source Comments (unrecognized sect ion and content) No Status Records FoundNo Status Records Found INFORMATION SOURCE (unrecogn ized section and content) DATE CREATED AUTHOR AUTHOR'S ORGANIZ ATION 07/06/2021 [facility] FOR RECORDS PERTAINING TO PATIENTS WHO ARE [...] BE BASED ON THE PRIMARY CLINICAL RECORDS. [facility] [employer] provides no warranty or guarantee of the accuracy or completeness of information in this document.
[2023-06-16 10:41] LABS: Anion Gap 5 (5-15); BUN 17 mg/dL (7-18); BUN/Creat Ratio 17.3 RATIO (10-20); Calcium,Total 9.3 mg/dL (8.5-10.1); Chloride 103 mmol/L (98-107); Creatinine, Serum 0.98 mg/dL (0.70-1.30); EST Glomerular Filtration Rate 80 mL/min (>60); Est Glom Filt Rate - Afr Amer 97 mL/min (>60); Glucose 105 mg/dL (74-106); Potassium 3.8 mmol/L (3.5-5.1); Sodium Level 138 mmol/L (136-145)
== END | disposition home or self-care (01) ==
LOC: LAB 09:40
PROVIDERS: PCP Family Medicine; Referring Provider Internal Medicine Cardiovascular Disease; Visit Provider Internal Medicine Cardiovascular Disease
DX: I10 Essential (primary) hypertension (principal); J84.170 Interstitial lung disease with progressive fibrotic phenotype in diseases classified elsewhere; R94.31 Abnormal electrocardiogram [ECG] [EKG]
CPT/HCPCS: 36415; 80048

== ENCOUNTER → 2023-08-17 | Outpatient (CLI) | payer MEDICARE, SELFPAY ==
--- NOTE | 2023-08-16 09:30 | LES_PTH ---
PATIENT: LUCIA BORJA LOC: [facility] U#:[id number] AGE/SX: 73/M ROOM: RE08/17/[address]: Dr. Jean-Paul Negro MD : 1950 BED: DIS: 08/17/2023 SPEC #: [id number] RECD: 08/16/23 12:28 STATUS: ARIANNE AGUEDA #: [id number] JENNIFER: 08/16/23 09:[address]: Jean-Paul Negro DEPT: SURGICAL PATHOLOGY RECD BY: Mary Carmen Leonard Tissues: Skin of arm Procedures: Surgery Specimen Level IV HEADER OPERATION: Punch biopsy PRE-OP DIAGNOSIS: Neoplasm right upper arm TISSUE SUBMITTED: Right arm MICROSCOPIC DIAGNOSIS Skin lesion of right arm, biopsy: Verrucoid keratosis, inflamed. AM/mr 08/17/23 MICROSCOPIC DESCRIPTION Slides are reviewed. GROSS DESCRIPTION Received is one container labeled with the patient's name and not further designated. The specimen consists of a raisinoid fragment of gunderson skin measuring 0.6 x 0.5 x 0.3cm. The specimen is bisected and totally submitted in one cassette. GRAHAM/ 08/17/23 TC:[address] [facility]:[id number]
== END | disposition home or self-care (01) ==
LOC: LABSPEC 08:23
PROVIDERS: PCP Family Medicine; Visit Provider Family Medicine
DX: L57.0 Actinic keratosis (principal)
CPT/HCPCS: 88305

== ENCOUNTER → 2024-04-24 | Outpatient (CLI) | payer MEDICARE, SELFPAY ==
[2024-04-24 15:33] LABS: ALB/GLOB Ratio 0.7 RATIO (0.9-2.4); AST(SGOT) 30 U/L (15-37); Alanine Aminotransfer ALT/SGPT 33 U/L (16-61); Albumin, Serum 3.4 g/dL (3.2-5.0); Alkaline Phosphatase 75 U/L (45-117); Anion Gap 7 (5-15); BUN 15 mg/dL (7-18); BUN/Creat Ratio 17.4 RATIO (10-20); Calcium,Total 9.1 mg/dL (8.5-10.1); Chloride 101 mmol/L (98-107); Cholesterol 188 mg/dL (200); Creatinine, Serum 0.86 mg/dL (0.70-1.30); EST Glomerular Filtration Rate 92 mL/min (>60); Est Glom Filt Rate - Afr Amer 112 mL/min (>60); Globulin 4.7 g/dL (2.2-4.2); Glucose 86 mg/dL (74-106); High Density Lipoprotein 44 mg/dL; PSA,Total - Annual Screen 0.94 ng/mL (0.00-4.00); Protein, Total 8.1 g/dL (6.4-8.2); Sodium Level 137 mmol/L (136-145); Triglycerides 155 mg/dL; Very Low Density Lipoprotein 31 mg/dL (5-40)
== END | disposition home or self-care (01) ==
LOC: MFPLAB 11:09
PROVIDERS: PCP Family Medicine; Referring Provider Family Medicine; Visit Provider Family Medicine
DX: Z00.00 Encounter for general adult medical examination without abnormal findings (principal); I10 Essential (primary) hypertension; Z12.5 Encounter for screening for malignant neoplasm of prostate
CPT/HCPCS: 36415; 80053; 80061; 84153; G0103

== ENCOUNTER → 2024-10-21 | Outpatient (CLI) | payer MEDICARE, SELFPAY ==
[2024-10-21 13:06] LABS: AST(SGOT) 28 U/L (<=37); Alanine Aminotransfer ALT/SGPT 23 U/L (<=46); Albumin, Serum 4.1 g/dL (3.4-4.8); Alkaline Phosphatase 73 U/L (40-129); Anion Gap 11 (5-15); BUN 16 mg/dL (4-19); BUN/Creat Ratio 17.5 RATIO (10-20); Calcium,Total 9.1 mg/dL (7.6-11.0); Carbon Dioxide 27.1 mmol/L (21.0-32.0); Chloride 100 mmol/L (98-108); Globulin 3.6 g/dL (2.2-4.2); Glucose 101 mg/dL (70-99); Potassium 4.0 mmol/L (3.3-5.1)
== END | disposition home or self-care (01) ==
LOC: MFPLAB 10:41
PROVIDERS: PCP Family Medicine; Referring Provider Family Medicine; Visit Provider Family Medicine
DX: R17 Unspecified jaundice (principal)
CPT/HCPCS: 36415; 80053

== ENCOUNTER → 2025-01-17 | Outpatient (CLI) | payer MEDICARE, SELFPAY ==
--- OUTSIDE RECORDS SUMMARY | 2025-01-17 09:47 | XMS RPT_ITS | CCD ---
Author Organization [facility] CliniSyin Care Team Providers Care Oleomargarine Maker Name Role Phone Dr. Jean-Paul Maza Primary Care Provider Dr. Milton Hernandez Attending Provider [phone] Dr. Milton Hernandez Referring Provider Dr. Milton Hernandez Other Provider Dr. Jean-Paul Maza Primary Care Provider Dr. Saleem Ernst Attending Provider Dr. Wilber Arias Referring Provider [phone] Dr. Jean-Paul Maza Referring Provider Bassam, Dr. Chaves Attending Provider Bassam, Dr. Chaves Referring Provider Bassma, Dr. Chaves Other Provider Dr. Jean-Paul Maza Primary Care Provider Dr. Saleem Ernst Attending Provider Dr. Wilber Arias Referring Provider [phone] Dr. Jean-Paul Maza Referring Provider Bassam, Dr. Chaves Attending Provider Bassam, Dr. Chaves Referring Provider Bassam, Dr. Chaves Other Provider Dr. Jean-Paul Maza Primary Care Provider Dr. Jean-Paul Maza Referring Provider Pedro FIELD RECORDER, BG Serna Attending Provider [phone] Dr. Jean-Paul Maza Primary Care Provider [phone] Sruthi, Dr. Jeong Referring Provider Bassam, Dr. Chaves Attending Provider Sruthi, Dr. Jeong Primary Care Provider Sruthi, Dr. Jeong Referring Provider Bassam, Dr. Chaves Attending Provider Sruthi ADAMS, Dr. Jeong Primary Care Provider [phone] Sruthi ADAMS, Dr. Jeong Attending Provider [phone] Sruthi ADAMS, Dr. Jeong Referring Provider [phone] Roof FIELD RECORDER-C, Maurisio Valles Attending Provider Sruthi, Jean-Paul Primary Care Unavailable Vasquez FIELD RECORDER, Daphne Attending Unavailable Vasquez FIELD RECORDER, Daphne Referring Unavailable Maza, Jean-Paul Primary Care Unavailable Vasquez FIELD RECORDER, Daphne Attending Unavailable Vasquez FIELD RECORDER, Daphne Referring Unavailable Maza, Jean-Paul Referring Unavailable Vasquez FIELD RECORDER, Daphne Attending Unavailable Maza, Jean-Paul Primary Care Unavailable Maza, Jean-Paul Referring Unavailable Maza, Jean-Paul Primary Care Unavailable Roof FIELD RECORDER, Maurisio Valles Attending Unavailable Maza, Jean-Paul Referring Unavailable Maza, Jean-Paul Primary Care Unavailable Maza, Jean-Paul Attending Unavailable Maza, Jean-Paul Referring Unavailable Maza, Jean-Paul Primary Care Unavailable Maza, Jean-Paul Attending Unavailable Allergies Allergy Classification Reported Allergen(s) Allergy Type Date of Onset Reaction(s) Facility (8 sources) Amoxicillin Drug Allergy 3 Shortness of breath [facility] Comment on above: rash,fatigue,cough (8 sources) Clavulanate Drug Allergy 3 Shortness of breath [facility] Comment on above: rash,fatigue,cough (8 sources) Lisinopril Drug Allergy 3 Angioedema [facility] (1 source) Amoxicillin Drug Allergy 5 [facility] Repository (1 source) Clavulanate Drug Allergy 5 [facility] Rep[facility] (1 source) Lisinopril Drug Allergy 5 [facility] Repository Medications Current Medications Medication Drug Class(es) Dates Sig (Normalized) Sig (Original) fluticasone propionate 0.05 mg/actuat metered dose nasal spray (2 sources) Corticosteroid Start: 03-12-20 24 Fluticasone Propionate 50 mcg/actuation spray,suspension Active 2 NMA INTRANASAL DAILY 16 3 March 12, 2024 1:00am Asthma Unspecified asthma, uncomplicated hydroCHLOROthiazide 25 mg oral tablet (9 sources) Thiazide Diuretic Start: 11-30-19 22 take 1 tablet by mouth once daily Hydrochlorothiazide 25 mg tablet Active 25 mg PO DAILY November 29, 2021 12:00am Multivitamin preparation (8 sources) Start: 12-15-19 21 take 1 tablet by mouth once daily Multivitamin Active 1 TABLET PO DAILY December 13, 2020 11:00pm Start: 12-14-2020 take 1 tablet by preet th once daily Multivitamin Active 1 TABLET PO DAILY December 14, 2020 12:00am Multivitamin tablet (2 sources) Start: 12-14-2020 Multivitamin t ablet Active 1 {tbl} PO DAILY December 14, 2020 12:00am Montgomery-3 Fatty Acids (8 sources) Start: 12-15-2020 take 1000 mg by mouth once daily Montgomery-3 Fatty Acids Active 1000 MG PO DAILY December 14, 2020 11:00pm Start: 12-15-2020 take 1000 mg by mouth once florentin ly Montgomery-3 Fatty Acids Active 1000 MG PO DAILY December 15, 2020 12:00am Completed/Discontinued Medications Medication Drug Class(es) Dates Sig (Normalized) Sig (Original) cholecalciferol 0.05 mg oral capsule (18 sources) Vitamin D Start: 05-31-2022 End: 06-01-2022 take 1 capsule by mouth once daily Cholecalciferol (Vitamin D3) 50 mcg (2,000 unit) capsule Discontinued 50 ug PO DAILY May 31, 2022 1:00am June 01, 2022 2:36pm Start: 04-22-2021 End: 05-31-2022 take 1 capsule by mouth once daily Cholecalciferol (Vitamin D3) 125 mcg (5,000 unit) capsule Discontinued 125 ug PO DAILY April 22, 2021 1:00am May 31, 2022 10:32am lisinopril 10 mg oral tablet (10 sources) Angiotensin Converting Enzyme Inhibitor Start: 12-14-2020 End: 11-29-2021 take 1 tablet by mouth once daily Lisinopril 10 mg tablet Discontinued 10 mg PO DAILY December 14, 2020 12:00am November 29, 2021 11:14am metoprolol tartrate 25 mg oral tablet (15 sources) beta-Adrenergic Olga Start: 06-01-2022 End: 10-30-2023 take 1 tablet by mouth twice daily Metoprolol Tartrate 25 mg tablet Discontinued 25 mg PO TWICE A DAY 60 8 February 21, 2023 11:18am October 30, 2023 8:03am nintedanib 100 mg oral capsule (10 sources) Kinase Inhibitor Start: 12-14-2020 End: 05-31-2022 take 1 capsule by mouth every twelve hours Nintedanib (Ofev) 100 mg capsule Discontinued 100 mg PO Q12H December 14, 2020 12:00am May 31, 2022 10:49am Montgomery-3 Fatty Acids 1,000 mg capsule (2 sources) Start: 12-15-2020 End: 03-12-2024 take 1 capsule by mouth once daily Montgomery-3 Fatty Acids 1,000 mg capsule Discontinued 1000 mg PO DAILY December 15, 2020 12:00am March 12, 2024 3:39pm omeprazole 40 mg delayed release oral capsule (20 sources) Proton Pump Inhibitor Start: 11-29-2021 End: 12-05-2024 take 1 capsule by mouth once daily Omeprazole 40 mg capsule,delayed release(DR/EC) Discontinued 40 mg PO DAILY June 15, 2023 2:50pm December 05, 2024 8:52am valsartan 160 mg oral tablet (10 sources) Angiotensin 2 Receptor Olga Start: 06-15-2023 End: 06-13-2024 take 1 tablet by mouth once daily Valsartan 160 mg tablet Discontinued 160 mg PO DAILY 90 3 June 15, 2023 3:21pm June 13, 2024 11:39am Problems Problem Classification Problem Date Documented Date Episodic/Chronic Asthma (1 source) Unspecified asthma, uncomplicated; Translations: [Unspecified asthma, uncomplicated] Onset: 03-12-2024 Chronic Essential hypertension (16 sources) Essential hypertension; Translations: [Essential (primary) hypertension] 05-31-2022 Chronic Other liver diseases (1 source) Unspecified jaundice; Translations: [Unspecified jaundice] Onset: 10-24-2024 Episodic Other lower respiratory disease (20 sources) Interstitial lung disease; Translations: [Interstitial lung disease with progressive fibrotic phenotype associated with other d] 05-31-2022 Chronic Comment on above: OFev made him feel b ad and was expensive Other lower respiratory disease (7 sources) Interstitial pulmonary disease, unspecified; Translations: [Postinflammatory pulmonary fibrosis] Onset: 01-13-2025 06-01-2022 Chronic Other lower respiratory disease (10 sources) Dyspnea; Translations: [Shortness of breath] 05-31-2022 Episodic Other lower respiratory disease (10 sources) Hypoxemia; Translations: [Hypoxemia] 05-31-2022 Episodic Other nutritional; endocrine; and metabolic disorders (5 sources) Simple obesity ; Translations: [Other obesity due to excess calories] 05-31-2022 Chronic Other nutritional; endocrine; and metabolic disorders (5 sources) Obesity caused by energy imbalance; Translations: [Other obesity due to excess calories] 05-31-2022 Chronic Other screening for suspected conditions (not mental disorders or infectious disease) (19 sources) Raised prostate specific antigen; Translations: [Elevated prostate specific antigen [PSA]] 05-31-2022 Episodic Other upper respiratory infections (2 sources) Posterior rhinorrhea; Translations: [Postnasal drip] 03-13-2024 Episodic Residual codes; unclassified (10 sources) Obstructive sleep apnea syndrome; Translations: [Obstructive sleep apnea (adult) (pediatric)] 05-31-2022 Chronic Residual codes; unclassified (5 sources) Sleep apnea; Translations: [Sleep apnea, unspecified] 06-15-2023 Chronic Residual codes; unclassified (2 sources) Sleep apnea, unspecified; Translations: [Unspecified sleep apnea] 06-15-2023 Chronic Residual codes; unclassified (10 sources) History of repair of umbilical hernia; Translations: [Other specified postprocedural states] 06-01-2022 Episodic Comment on above: x2 Results Test Name Value Interpretation Reference Range Facility Cardiology Visit Reporton Cardiology Visit Report [facility] [address] [place] [address] OFFICE VISIT Date of Service: 12/05/24 MR#: [id number] Acct: [id number] Name: LEELUCIA VERAS Rep #: [id number] : 1950 Provider: BG garcia Age/Sex: 74/M Location: [facility] Status: Signed HPI HPI History of Present Illness Details: This gentleman has history of interstitial lung disease and hypertension. Here for follow-up visit. He established with us for an abnormal ECG in May 2022 that showed t-wave abnormality. He proceeded with echocardiogram and stress test. His echocardiogram showed a preserved EF, no wall motion abnormalities, and no hemodynamically significant valve disease. Stress test was negative for ischemia. He denies chest, arm, jaw, or neck discomfort. He denies palpitations. He denies bilateral lower extremity edema. He denies claudication. He states shortness of breath with activity. This is "minor" and occurs when he over does it. This includes yardwork or coming up stairs. He doesn't need to rest with it. He denies shortness of breath at rest, orthopnea, or PND. He denies chronic cough. He denies significant, sudden weight gain. He denies lightheadedness, dizziness, near-syncope, or syncope. He denies blood in urine, blood in stool, or epistaxis. He denies fever with chills. He denies myalgia. He denies fatigue. His exercise level has remained stable. 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: No Accompanied by: Self Is patient in pain?: No Allergies amoxicillin (From Augmentin) Allergy (Intermediate, Verified 12/05/24 08:50) Shortness of breath clavulanic acid (From Augmentin) Allergy (Intermediate, Verified 12/05/24 08:50) Shortness of breath lisinopril Allergy (Intermediate, Verified 12/05/24 08:50) Angioedema Medications ???Medication ???Instructions ???Recorded ???Confirmed ???Type multivitamin 1 tab PO DAILY 12/14/20 12/05/24 H istory hydrochlorothiazide 25 mg tablet 25 mg PO DAILY 11/29/21 12/05/24 H istory metoprolol tartrate 25 mg tablet 25 mg PO BID #180 TABLETS 10/30/23 12/05/24 Rx Held on 03/18/24. Instructions: sinus drainage and mucus fluticasone propionate 50 2 spray intranasal DAILY #16 grams 03/12/24 12/05/24 Rx mcg/actuation nasal spray,suspension valsartan 160 mg tablet 160 mg PO DAILY #90 tabs 06/13/24 12/05/24 Rx Have you fallen in the past year?: No PFSH Medical History Sleep apnea Interstitial lung disease Abnormal ECG Preoperative cardiovascular examination Premature atrial contractions Arrhythmia Vitamin D deficiency High bilirubin Acid reflux Elevated prostate specific antigen [PSA] Urinary calculus Nocturia Interstitial lung disease Other obesity due to excess calories Essential (primary) hypertension Obstructive sleep apnea (adult) (pediatric) Hypoxemia Interstitial lung disease with progressive fibrotic phenotype in diseases classified elsewhere SOB (shortness of breath) Surgical History History of kidney stones ( 06/2022) Hx of umbilical hernia repair Family History Brother CAD (coronary artery disease) COPD (chronic obstructive pulmonary disease) Brother ETOH abuse Brother CVA (cerebral vascular accident) Aortic dissection Social History Smoking Status: Never smoker alcohol intake: current alcohol intake frequency: holidays/special occasions only substance use type: does not use caffeine: Yes (a few /week) Type: carbonated beverages and tea ROS Const Const: Negative for fatigue or weakness ENT ENT: Negative for dizziness or balance problems Cardio Chest Pain: No Palpitations: No Edema: None Muscle aches with walking: None Resp Respiratory: Positive for SOB with activity; Negative for SOB at rest or SOB orthopnea SOB lying down GI GI: Negative nausea, vomiting or heartburn : Negative for hematuria or frequent nighttime urination/ nocturia Musc Musc: Negative for muscle weakness or balance problems Skin Skin: Negative non-healing lesions or rash Neuro Neuro: Negative for dizziness, lightheadedness, near syncope, syncope or weakness Endo Endo: Negative for fatigue Allergy Allergy/Immunology: Negative for rash Cardiology Exam Const Appearance: cooperative, heal (more content not included)... Normal [facility] Anion gap in Serum or Plasma Ordered By: Jean-Paul Maza on 10-21-2024 Anion gap [Moles/Vol] 11 mmol/L 5-15 [facility] BUN/creatinine ratioOrdered By: Jean-Paul Maza on 10-21-2024 Urea nitrogen/Creatinine [Mass ratio] 17.5 mg/mg 10-20 [facility] Bilirubin, totalOrdered By: Jean-Paul Maza on 10-21-2024 Bilirubin [Mass/Vol] 1.29 mg/dL 0.00-1.30 [facility] Carbon dioxide, total [Moles /volume] in Central venous bloodOrdered By: Jean-Paul Maza on 10-21-2024 CO2 [Moles/Vol] 27.1 mmol/L 21.0-32.0 [facility] Chloride assayOrdered By: Ross Maza on 10-21-2024 Chloride [Moles/Vol] 100 mmol/L 98-108 [facility] Comprehensive Metabolic Prof ilon 10-21-2024 Albumin [Mass/Vol] 4.1 g/dL Normal 3.4-4.[address] [facility] Comment on above: Performed By: #### L [id number] #### [facility] [address] [place], [address] Albumin/Globulin [Mass ratio] 1.1 {ratio} Normal 0.9-2.4 [facility] Comment on above: Performed By: #### L [id number] #### [facility] [address] [place], [address] ALK PHOS 73 U/L Normal 40-129 [facility] Comment on above: Performed By: #### L [id number] #### [facility] [address] [place], [address] ALT [Catalytic activity/Vol] 23 U/L Normal <=46 [facility] Comment on above: Performed By: #### L [id number] #### [facility] [address] [place], [address] AST [Catalytic activity/Vol] 28 U/L Normal <=37 [facility] Comment on above: Performed By: #### L [id number] #### [facility] [address] [place], [address] Bilirubin [Mass/Vol] 1.29 mg/dL Normal 0.00-1.30 [facility] Comment on above: Performed By: #### L [id number] #### [facility] [address] [place], [address] BUN/CRE 17.5 RATIO Normal 10-20 [facility] Comment on above: Performed By: #### L [id number] #### [facility] [address] [place], [address] Calcium [Mass/Vol] 9.1 mg/dL Normal 7.6-11.[address] [facility] Comment on above: Performed By: #### L [id number] #### [facility] [address] [place], [address] Chloride [Moles/Vol] 100 mmol/L Normal 98-108 [facility] Comment on above: Performed By: #### L [id number] #### [facility] [address] [place], [address] CO2 [Moles/Vol] 27.1 mmol/L Normal 21.0-32.0 [facility] Comment on above: Performed By: #### L [id number] #### [facility] [address] [place], [address] Creatinine [Mass/Vol] 0.93 mg/dL Normal 0.70-1.20 [facility] Comment on above: Performed By: #### L [id number] #### [facility] [address] [place], [address] GAP 11 Normal 5-15 [facility] Comment on above: Performed By: #### L [id number] #### [facility] [address] [place], [address] GFR/1.73 sq M.predicted among non-blacks MDRD (S/P/Bld) [Vol rate/Area] 87 mL/min/{1.73_m2} Normal >60 [facility] Comment on above: Result Comment: mL/m in/1.73m2 CKD-EPI Creatinine Equation (2020) Performed By: #### L [id number] #### [facility] [address] [place], [address] Globulin (S) [Mass/Vol] 3.6 g/dL Normal 2.2-4.2 [facility] Comment on above: Performed By: #### L [id number] #### [facility] [address] [place], [address] Glucose [Mass/Vol] 101 mg/dL High 70-[address] [facility] Comment on above: Performed By: #### L [id number] #### [facility] [address] [place], [address] Potassium [Moles/Vol] 4.0 mmol/L Normal 3.3-5.1 [facility] Comment on above: Performed By: #### L [id number] #### [facility] [address] [place], [address] Sodium [Moles/Vol] 137 mmol/L Normal 133-[address] [facility] Comment on above: Performed By: #### L [id number] #### [facility] [address] [place], [address] T PROT 7.7 g/dL Normal 5.9-8.4 [facility] Comment on above: Performed By: #### L [id number] #### [facility] [address] [place], [address] Urea nitrogen [Mass/Vol] 16 mg/dL Normal 4-19 [facility] Comment on above: Performed By: #### L [id number] #### [facility] [address] [place], [place], [address] Glomerular filtration rate ( GFR) estimation/1.73 sq m using serum, plasma, or whole bOrdered By: Jean-Paul Maza on 10-21-2024 GFR/1.73 sq M.predicted among non-blacks MDRD (S/P/Bld) [Vol rate/Area] 87 mL/min/{1.73_m2} >60 [facility] Comment on above: mL/min/1.73m2 CKD-EP I Creatinine Equation (2020) Laboratory - Chemistry and C hemistry - challengeOrdered By: Jean-Paul Maza on 10-21-2024 AST [Catalytic activity/Vol] 28 U/L <38 [facility] Potassium measurement (mass/ volume)Ordered By: Jean-Paul Maza on 10-21-2024 Potassium (Unsp spec) [Mass/Vol] 4.0 mmol/L 3.3-5.1 [facility] Serum creatinine measurement (mass/volume)Ordered By: Jean-Paul Maza on 10-21-2024 Creatinine [Mass/Vol] 0.93 mg/dL 0.70-1.20 [facility] Serum globulin measurementOr dered By: Jean-Paul Maza on 10-21-2024 Globulin (S) [Mass/Vol] 3.6 g/dL 2.2-4.2 [facility] Serum glucose measurement (m ass/volume)Ordered By: Jean-Paul Maza on 10-21-2024 Glucose [Mass/Vol] 101 mg/dL High 70-[address] [facility] Serum or plasma alanine phelan otransferase (ALT) measurementOrdered By: Jean-Paul Maza on 10-21-2024 ALT [Catalytic activity/Vol] 23 U/L <47 [facility] Serum or plasma albumin remberto urement (mass/volume)Ordered By: Jean-Paul Maza on 10-21-2024 Albumin [Mass/Vol] 4.1 g/dL 3.4-4.[address] [facility] Serum or plasma albumin/glob ulin mass ratioOrdered By: Jean-Paul Maza on 10-21-2024 Albumin/Globulin [Mass ratio] 1.1 {ratio} 0.9-2.4 [facility] Serum or plasma alkaline jaimie sphatase measurementOrdered By: Jean-Paul Maza on 10-21-2024 ALP [Catalytic activity/Vol] 73 U/L 40-129 [facility] Serum or plasma calcium remberto urement (mass/volume)Ordered By: Jean-Paul Maza on 10-21-2024 Calcium [Mass/Vol] 9.1 mg/dL 7.6-11.[address] [facility] Serum or plasma urea nitroge n measurement (mass/volume)Ordered By: Jean-Paul Maza on 10-21-2024 Urea nitrogen [Mass/Vol] 16 mg/dL 4-19 [facility] Sodium levelOrdered By: Jean-Paul Maza on 10-21-2024 Sodium [Moles/Vol] 137 mmol/L 133-[address] [facility] Total proteinOrdered By: Randi Maza on 10-21-2024 Protein [Mass/Vol] 7.7 g/dL 5.9-8.[address] [facility] Comprehensive Metabolic Prof ilon 04-24-2024 Albumin [Mass/Vol] 3.4 g/dL Normal 3.2-5.[address] [facility] Comment on above: Performed By: #### L 500.4100, L500.4050, L501.9910 #### [facility] [address] [place], [address] Albumin/Globulin [Mass ratio] 0.7 {ratio} Low 0.9-2.4 [facility] Comment on above: Performed By: #### L 500.4100, L500.4050, L501.9910 #### [facility] [address] [place], [address] ALK P 75 U/L Normal 45-117 [facility] Comment on above: Performed By: #### L 500.4100, L500.4050, [id number] #### [facility] [address] [place], [address] ALT [Catalytic activity/Vol] 33 U/L Normal 16-61 [facility] Comment on above: Performed By: #### L 500.4100, L500.4050, L501.9910 #### [facility] [address] [place], [address] AST [Catalytic activity/Vol] 30 U/L Normal 15-37 [facility] Comment on above: Performed By: #### L 500.4100, L500.4050, L501.9910 #### [facility] [address] [place], [address] Bilirubin [Mass/Vol] 1.40 mg/dL High 0.20-1.00 [facility] Comment on above: Result Comment: For patients on eltrombopag therapy, use of Dimension [place] TBIL is not recommended. Performed By: #### L 500.4100, L500.4050, L501.9910 #### [facility] [address] [place], [address] BUN/CRE 17.4 RATIO Normal 10-20 [facility] Comment on above: Performed By: #### L 500.4100, L500.4050, [id number] #### [facility] [address] [place], [address] CA,Total 9.1 mg/dL Normal 8.5-10.1 [facility] Comment on above: Performed By: #### L 500.4100, L500.4050, [id number] #### [facility] [address] [place], [address] Chloride [Moles/Vol] 101 mmol/L Normal 98-107 [facility] Comment on above: Performed By: #### L 500.4100, L500.4050, [id number] #### [facility] [address] [place], [address] CO2 [Moles/Vol] 29.0 mmol/L Normal 21.0-32.0 [facility] Comment on above: Performed By: #### L 500.4100, L500.4050, L501.9910 #### [facility] [address] [place], [address] Creatinine [Mass/Vol] 0.86 mg/dL Normal 0.70-1.30 [facility] Comment on above: Result Comment: The validity of the calculated GFR GFRAA in patients over 70 years has not been determined. Clinical correlation is essential. Performed By: #### L 500.4100, L500.4050, L501.9910 #### [facility] [address] [place], [address] EST GFR - AA 112 mL/min Normal >60 [facility] Comment on above: Result Comment: Afri can [place] GFR Calc Performed By: #### L 500.4100, L500.4050, [id number] #### [facility] [address] [place], [address] GAP 7 Normal 5-15 [facility] Comment on above: Performed By: #### L 500.4100, L500.4050, [id number] #### [facility] [address] [place], [address] GFR/1.73 sq M.predicted among non-blacks MDRD (S/P/Bld) [Vol rate/Area] 92 mL/min/{1.73_m2} Normal >60 [facility] [facility] Comment on above: Result Comment: Non- GFR Calc Performed By: #### L 500.4100, L500.4050, L501.9910 #### [facility] [address] [place], [address] Globulin (S) [Mass/Vol] 4.7 g/dL High 2.2-4.2 [facility] Comment on above: Performed By: #### L 500.4100, L500.4050, L501.9910 #### [facility] [address] [place], [address] Glucose [Mass/Vol] 86 mg/dL Normal 74-[address] [facility] Comment on above: Performed By: #### L 500.4100, L500.4050, L501.9910 #### [facility] [address] [place], [address] Potassium [Moles/Vol] 4.0 mmol/L Normal 3.5-5.1 [facility] Comment on above: Performed By: #### L 500.4100, L500.4050, L501.9910 #### [facility] [address] [place], [address] Sodium [Moles/Vol] 137 mmol/L Normal 136-[address] [facility] Comment on above: Performed By: #### L 500.4100, L500.4050, L501.9910 #### [facility] [address] [place], [address] T PROT 8.1 g/dL Normal 6.4-8.2 [facility] Comment on above: Performed By: #### L 500.4100, L500.4050, L501.9910 #### [facility] [address] [place], [address] Urea nitrogen [Mass/Vol] 15 mg/dL Normal 7-18 [facility] Comment on above: Performed By: #### L 500.4100, L500.4050, L501.9910 #### [facility] [address] [place], [address] Lipid Profileon 04-24-2024 Cholesterol [Mass/Vol] 188 mg/dL Normal 200 [facility] Comment on above: Result Comment: <200 mg/dL Desirable 200-240 mg/dL Borderline >240 mg/dL High Risk Performed By: #### L 500.4100, L500.4050, L501.9910 #### [facility] [address] [place], [address] Cholesterol in HDL [Mass/Vol] 44 mg/dL Normal [facility] Comment on above: Result Comment: The drugs N-Acetylcysteine and Metamizole may falsely depress this assay. Reference Range HDL <40 mg/dL Low HDL Cholesterol HDL >or= 60 mg/dL High HDL Cholesterol Performed By: #### L 500.4100, L500.4050, L501.9910 #### [facility] [address] [place], [address] Cholesterol in LDL [Mass/Vol] 113 mg/dL Normal 0-130 [facility] Comment on above: Performed By: #### L 500.4100, L500.4050, L501.9910 #### [facility] [address] [place], [address] Cholesterol in VLDL [Mass/Vol] 31 mg/dL Normal 5-40 [facility] Comment on above: Performed By: #### L 500.4100, L500.4050, L501.9910 #### [facility] [address] [place], [address] Triglyceride [Mass/Vol] 155 mg/dL Normal [facility] Comment on above: Result Comment: The drugs N-Acetylcysteine and Metamizole may falsely depress this assay. Serum Triglycerides Reference Interval Normal <150 mg/dL Borderline high 150 - 199 mg/dL High 200 - 499 mg/dL Very High > or = 500 mg/dL Performed By: #### L 500.4100, L500.4050, L501.9910 #### [facility] [address] [place], [address] PSA,Total - Annual Screenon 04-24-2024 PSA,TOT SCREEN 0.94 ng/mL Normal 0.00-4.00 [facility] Comment on above: Result Comment: This test was performed using the TPSA assay method for the [employer] chemistry system. Values obtained with different assay methods cannot be used interchangably. When changing PSA assays in the course of monitoring a patient, additional sequential testing should be carried out to confirm baseline values. Performed By: #### L 500.4100, L500.4050, L501.9910 #### [facility] [address] [place], [address] Pulmonary Visit Reporton Pulmonary Visit Report [facility] [place] [address] [place] [address] OFFICE VISIT Date of Service: 03/12/24 MR#: [id number] Acct: [id number] Name: LUCIA SUMMERS Rep #: [id number] : 1950 Provider: BG Vasquez Age/Sex: 73/M [facility] Status: Signed Assessment and Plan Assessment and Plan (1) Interstitial lung disease: Status: Chronic Comment: OFev made him feel bad and was expensive Plan: Asymptomatic at this time. Follow-up with Dr. Hernandez in 1 year for continued observation. He has been encouraged to contact the office with any new or worsening symptoms in the meantime. (2) Postnasal drip: Status: Acute Plan: New. Quite possibly causing the cough. The patient is agreeable to trialing nasal steroid. He will contact the office with an update on his response to therapy. No additional testing at this time. Orders: Orders Pulmonary Function Test (Comp) 01/15/25 J84.9 - Interstitial pulmonary disease, unspecified Simple Pulmonary Exercise Test 01/15/25 J84.9 - Interstitial pulmonary disease, unspecified Medications: New fluticasone propionate 50 mcg/actuation 2 sprays intranasal DAILY 16 grams 3RF J45.909 - Unspecified asthma, uncomplicated Plan Details Follow Up: 1 Year (DMB) HPI 1 Y FU Chief Complaint: Postnasal drip HPI Comments Details: This patient presents to the office today for follow up on his interstitial lung disease. He is ambulatory and currently on room air. He has not recently been seen in the ED or urgent care for any respiratory illness. He has not required any antibiotics or prednisone for any breathing problems. He is not currently on any maintenance inhalers. The patient has been seen by gear room keeper. He was told that he had a postnasal drip from scope that occurred in the office exam room. No additional medications or change in maintenance medications was made at that time. If you recall, he is a lifelong never smoker. He reports shortness of breath on exertion. He has a daily cough that is dry. He does report postnasal drip and drainage. He denies any wheezing, chest tightness, chest pain or palpitations. He has not had any fever, chills or body aches. He does report occasional shortness of breath with anxiety. 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 Required: No DME Vendor: n/a Accompanied by: Self Is patient in pain?: No Allergies amoxicillin (From Augmentin) Allergy (Intermediate, Verified 03/12/24 14:39) Shortness of breath clavulanic acid (From Augmentin) Allergy (Intermediate, Verified 03/12/24 14:39) Shortness of breath lisinopril Allergy (Intermediate, Verified 03/12/24 14:39) Angioedema Medications ???Medication ???Instructions ???Recorded ???Confirmed ???Type multivitamin 1 tab PO DAILY 12/14/20 03/12/24 History hydrochlorothiazide 25 mg tablet 25 mg PO DAILY 11/29/21 03/12/24 History omeprazole 40 mg capsule,delayed 40 mg PO DAILY 06/15/23 03/12/24 History release valsartan 160 mg tablet 160 mg PO DAILY #90 tabs 06/15/23 03/12/24 Rx metoprolol tartrate 25 mg tablet 25 mg PO BID #180 TABLETS 10/30/23 03/12/24 Rx fluticasone propionate 50 2 spray intranasal DAILY #16 grams 03/12/24 03/12/24 Rx mcg/actuation nasal spray,suspension Have you fallen in the past year?: No PFSH Medical History Sleep apnea Interstitial lung disease Abnormal ECG Preoperative cardiovascular examination Premature atrial contractions Arrhythmia Vitamin D deficiency High bilirubin Acid reflux Elevated prostate specific antigen [PSA] Urinary calculus Nocturia Interstitial lung disease Other obesity due to excess calories Essential (primary) hypertension Obstructive sleep apnea (adult) (pediatric) Hypoxemia Interstitial lung disease with progressive fibrotic phenotype in diseases classified elsewhere SOB (shortness of breath) Surgical History History of kidney stones ( 06/2022) Hx of umbilical hernia repair Family History Brother CAD (coronary artery disease) COPD (chronic obstructive pulmonary disease) Brother ETOH abuse Brother CVA (cerebral vascular accident) Aortic dissection (more content not included)... Normal [facility] Basophil percentageOrdered B y: Anastacio Banegas on 06-16-2023 Chloride [Moles/Vol] 103 mmol/L 98-107 [facility] Glucose [Mass/Vol] 105 mg/dL 74-[address] [facility] Comment on above: Fasting Glucose resu lt from 100 to 125 mg/dL suggests IMPAIRED HOMEOSTASIS per A.D.A. criteria. Potassium [Moles/Vol] 3.8 mmol/L 3.5-5.1 [facility] Sodium [Moles/Vol] 138 mmol/L 136-[address] [facility] Laboratory - Chemistry and C hemistry - challengeOrdered By: Anastacio Banegas on 06-16-2023 CO2 [Moles/Vol] 30.0 mmol/L 21.0-32.0 [facility] Urea nitrogen/Creatinine [Mass ratio] 17.3 mg/mg 10- [facility] No Panel InformationOrdered By: Anastacio Banegas on 06-16-2023 Estimated GFR (MDRD) Amer 97 mL/min >60 [facility] Comment on above: GFR Calc Estimated GFR (MDRD) Non-Af Amer 80 mL/min >60 [facility] Comment on above: Non- GFR Calc Serum or plasma calcium remberto urement (mass/volume)Ordered By: Anastacio Banegas on 06-16-2023 Calcium [Mass/Vol] 9.3 mg/dL 8.5-10.[address] [facility] Serum or plasma creatinine m easurement (mass/volume)Ordered By: Anastacio Banegas on 06-16-2023 Creatinine [Mass/Vol] 0.98 mg/dL 0.70-1.30 [facility] Comment on above: The validity of the calculated GFR & GFRAA in patients over 70 years has not been determined. Clinical correlation is essential. Serum or plasma urea nitroge n measurement (mass/volume)Ordered By: Anastacio Banegas on 06-16-2023 Urea nitrogen [Mass/Vol] 17 mg/dL 7-18 [facility] Thin prep Papanicolaou smear with manual screeningOrdered By: Anastacioisaura Banegas on 06-16-2023 Thin prep Papanicolaou smear with manual screening 5 5-15 [facility] Basophil percentageOrdered B y: Jean-Paul Maza on 04-13-2023 Chloride [Moles/Vol] 102 mmol/L 98-107 [facility] Cholesterol [Mass/Vol] 189 mg/dL <200 [facility] Comment on above: <200 mg/dL Desirable 200-240 mg/dL Borderline >240 mg/dL High Risk Glucose [Mass/Vol] 95 mg/dL 74-[address] [facility] Potassium [Moles/Vol] 4.4 mmol/L 3.5-5.1 [facility] Sodium [Moles/Vol] 138 mmol/L 136-[address] [facility] Triglyceride [Mass/Vol] 181 mg/dL <199 [facility] Comment on above: The drugs N-Acetylcy steine and Metamizole may falsely depress this assay.Serum Triglycerides Reference Interval Normal <150 mg/dL Borderline high 150 - 199 mg/dL High 200 - 499 mg/dL Very High > or = 500 mg/dL Laboratory - Chemistry and C hemistry - challengeOrdered By: Jean-Paul Maza on 04-13-2023 CO2 [Moles/Vol] 32.0 mmol/L 21.0-32.0 [facility] Urea nitrogen/Creatinine [Mass ratio] 15.2 mg/mg 10-20 [facility] No Panel InformationOrdered By: Jean-Paul Maza on 04-13-2023 Estimated GFR (MDRD) Amer 104 mL/min >60 [facility] Comment on above: GFR Calc Estimated GFR (MDRD) Non-Af Amer 86 mL/min >60 [facility] Comment on above: Non- GFR Calc Prostate Specific Antigen Total 0.88 ng/mL 0.0-4.0 [facility] Comment on above: This test was perfor med using the TPSA assay method for [employer] chemistry system. Values obtained with differentassay methods cannot be used interchangably.When changing PSA assays in the course of monitoring apatient, additional sequential testing should be carriedout to confirm baseline values. Serum or plasma calcium remberto urement (mass/volume)Ordered By: Jean-Paul Maza on 04-13-2023 Calcium [Mass/Vol] 9.0 mg/dL 8.5-10.[address] [facility] Serum or plasma cholesterol in HDL measurement (mass/volume)Ordered By: Jean-Paul Maza on 04-13-2023 Cholesterol in HDL [Mass/Vol] 40 mg/dL >40 [facility] Comment on above: The drugs N-Acetylcy steine and Metamizole may falsely depress this assay. Reference Range HDL <40 mg/dL Low HDL Cholesterol HDL >or= 60 mg/dL High HDL Cholesterol Serum or plasma cholesterol in VLDL measurement (mass/volume)Ordered By: Jean-Paul Maza on 04-13-2023 Cholesterol in VLDL [Mass/Vol] 36 mg/dL 5-40 [facility] Serum or plasma creatinine m easurement (mass/volume)Ordered By: Jean-Paul Maza on 04-13-2023 Creatinine [Mass/Vol] 0.92 mg/dL 0.70-1.30 [facility] Comment on above: The validity of the calculated GFR & GFRAA in patients over 70 years has not been determined. Clinical correlation is essential. Serum or plasma low density lipoprotein (LDL) cholesterol measurement (mass/volume)Ordered By: Jean-Paul Maza on 04-13-2023 Cholesterol in LDL [Mass/Vol] 113 mg/dL 0-130 [facility] Serum or plasma urea nitroge n measurement (mass/volume)Ordered By: Jean-Paul Maza on 04-13-2023 Urea nitrogen [Mass/Vol] 14 mg/dL 7-18 [facility] Thin prep Papanicolaou smear with manual screeningOrdered By: Jean-Paul Mzaa on 04-13-2023 Thin prep Papanicolaou smear with manual screening 4 5-15 [facility] Basophil percentageOrdered B y: Dr. Arias on 06-27-2022 Chloride [Moles/Vol] 102 mmol/L 98-107 [facility] Glucose [Mass/Vol] 93 mg/dL 74-[address] [facility] Potassium [Moles/Vol] 4.5 mmol/L 3.5-5.1 [facility] Comment on above: Moderate Hemolysis, Result may be falsely increased. Sodium [Moles/Vol] 137 mmol/L 136-[address] [facility] WBC (Bld) [#/Vol] 9.0 10*3/uL 4.4-11.[address] [facility] Blood erythrocytes count (nu mber/volume)Ordered By: Dr. Arias on 06-27-2022 RBC (Bld) [#/Vol] 5.46 10*6/uL 4.6-6.2 [facility] Blood hemoglobin measurement (mass/volume)Ordered By: Dr. Arias on 06-27-2022 Hemoglobin (Bld) [Mass/Vol] 17.6 g/dL 13.0-16.5 [facility] Blood platelet mean volumeOr dered By: Dr. Arias on 06-27-2022 Platelet mean volume (Bld) [Entitic vol] 9.4 fL 6.2-12.0 [facility] Determination of erythrocyte mean corpuscular volume (MCV)Ordered By: Dr. Arias on 06-27-2022 MCV (RBC) [Entitic vol] 95.2 fL 80-94 [facility] Hematocrit Auto (Bld) [Volum e fraction]Ordered By: Dr. Arias on 06-27-2022 Hematocrit (Bld) [Volume fraction] 52.0 % 40-54 [facility] - Chemistry and C hemistry - challengeOrdered By: Dr. Arias on 06-27-2022 CO2 [Moles/Vol] 30.0 mmol/L 21.0-32.0 [facility] Urea nitrogen/Creatinine [Mass ratio] 20.6 mg/mg 10-20 [facility] - Hematology and Cell countsOrdered By: Dr. Arias on 06-27-2022 Erythrocyte distribution width (RBC) [Entitic vol] 42.2 fL 35.1-43.9 [facility] Erythrocyte distribution width (RBC) [Ratio] 12.1 % 11.6-14.6 [facility] MCH (RBC) [Entitic mass] 32.2 pg 27.0-32.0 [facility] MCHC Auto (RBC) [Mass/Vol]Or dered By: Dr. Arias on 06-27-2022 MCHC (RBC) [Mass/Vol] 33.8 g/dL 32-36 [facility] No Panel InformationOrdered By: Dr. Arias on 06-27-2022 Estimated GFR (MDRD) Amer 104 mL/min >60 [facility] Comment on above: GFR Calc Estimated GFR (MDRD) Non-Af Amer 86 mL/min >60 [facility] Comment on above: Non- GFR Calc Prostate Specific Antigen Total 1.95 ng/mL 0.0-4.0 [facility] Comment on above: This test was perfor med using the TPSA assay method for the[employer] chemistry system. Values obtained with differentassay methods cannot be used interchangably.When changing PSA assays in the course of monitoring apatient, additional sequential testing should be carriedout to confirm baseline values. Platelets bldOrdered By: Dr. Arias on 06-27-2022 Platelets (Bld) [#/Vol] 272 10*3/uL 150-450 [facility] Serum or plasma calcium remberto urement (mass/volume)Ordered By: Dr. Arias on 06-27-2022 Calcium [Mass/Vol] 9.6 mg/dL 8.5-10.[address] [facility] Serum or plasma creatinine m easurement (mass/volume)Ordered By: Dr. Arias on 06-27-2022 Creatinine [Mass/Vol] 0.92 mg/dL 0.70-1.30 [facility] Comment on above: The validity of the calculated GFR & GFRAA in patients over 70 years has not been determined. Clinical correlation is essential. Serum or plasma urea nitroge n measurement (mass/volume)Ordered By: Dr. Arias on 06-27-2022 Urea nitrogen [Mass/Vol] 19 mg/dL 7-18 [facility] Thin prep Papanicolaou smear with manual screeningOrdered By: Dr. Arias on 06-27-2022 Thin prep Papanicolaou smear with manual screening 5 5-15 [facility] Basophil percentageOrdered B y: Dr. Arias on 05-25-2022 Chloride [Moles/Vol] 103 mmol/L 98-107 [facility] Glucose [Mass/Vol] 147 mg/dL 74-[address] [facility] Comment on above: Fasting Glucose resu lt greater than or equal to 126 mg/dL suggests DIABETES MELLITUS per A.D.A. criteria. Potassium [Moles/Vol] 3.9 mmol/L 3.5-5.1 [facility] Sodium [Moles/Vol] 140 mmol/L 136-[address] [facility] WBC (Bld) [#/Vol] 9.0 10*3/uL 4.4-11.[address] [facility] Blood erythrocytes count (nu mber/volume)Ordered By: Dr. Arias on 05-25-2022 RBC (Bld) [#/Vol] 5.43 10*6/uL 4.6-6.2 [facility] Blood hemoglobin measurement (mass/volume)Ordered By: Dr. Arias on 05-25-2022 Hemoglobin (Bld) [Mass/Vol] 17.3 g/dL 13.0-16.5 [facility] Blood platelet mean volumeOr dered By: Dr. Arias on 05-25-2022 Platelet mean volume (Bld) [Entitic vol] 10.1 fL 6.2-12.0 [facility] Determination of erythrocyte mean corpuscular volume (MCV)Ordered By: Dr. Arias on 05-25-2022 MCV (RBC) [Entitic vol] 96.3 fL 80-94 [facility] Hematocrit Auto (Bld) [Volum e fraction]Ordered By: Dr. Arias on 05-25-2022 Hematocrit (Bld) [Volume fraction] 52.3 % 40-54 [facility] - Chemistry and C hemistry - challengeOrdered By: Dr. Arias on 05-25-2022 CO2 [Moles/Vol] 33.0 mmol/L 21.0-32.0 [facility] Urea nitrogen/Creatinine [Mass ratio] 18.0 mg/mg 10-20 [facility] - Hematology and Cell countsOrdered By: Dr. Arias on 05-25-2022 Erythrocyte distribution width (RBC) [Entitic vol] 44.4 fL 35.1-43.9 [facility] Erythrocyte distribution width (RBC) [Ratio] 12.5 % 11.6-14.6 [facility] MCH (RBC) [Entitic mass] 31.9 pg 27.0-32.0 [facility] MCHC Auto (RBC) [Mass/Vol]Or dered By: Dr. Arias on 05-25-2022 MCHC (RBC) [Mass/Vol] 33.1 g/dL 32-36 [facility] No Panel InformationOrdered By: Dr. Arias on 05-25-2022 Estimated GFR (MDRD) Amer 95 mL/min >60 [facility] Comment on above: GFR Calc Estimated GFR (MDRD) Non-Af Amer 78 mL/min >60 [facility] Comment on above: Non- GFR Calc Platelets bldOrdered By: Dr. Arias on 05-25-2022 Platelets (Bld) [#/Vol] 288 10*3/uL 150-450 [facility] Serum or plasma calcium remberto urement (mass/volume)Ordered By: Dr. Arias on 05-25-2022 Calcium [Mass/Vol] 9.3 mg/dL 8.5-10.[address] [facility] Serum or plasma creatinine m easurement (mass/volume)Ordered By: Dr. Arias on 05-25-2022 Creatinine [Mass/Vol] 1.00 mg/dL 0.70-1.30 [facility] Comment on above: The validity of the calculated GFR & GFRAA in patients over 70 years has not been determined. Clinical correlation is essential. Serum or plasma urea nitroge n measurement (mass/volume)Ordered By: Dr. Arias on 05-25-2022 Urea nitrogen [Mass/Vol] 18 mg/dL 7-18 [facility] Thin prep Papanicolaou smear with manual screeningOrdered By: Dr. Arias on 05-25-2022 Thin prep Papanicolaou smear with manual screening 4 5-15 [facility] Basophil percentageOrdered B y: Dr. Maza on 04-05-2022 Chloride [Moles/Vol] 102 mmol/L 98-107 [facility] Cholesterol [Mass/Vol] 183 mg/dL <200 [facility] Comment on above: <200 mg/dL Desirable 200-240 mg/dL Borderline >240 mg/dL High Risk Glucose [Mass/Vol] 85 mg/dL 74-[address] [facility] Potassium [Moles/Vol] 4.5 mmol/L 3.5-5.1 [facility] Sodium [Moles/Vol] 139 mmol/L 136-[address] [facility] Triglyceride [Mass/Vol] 124 mg/dL <199 [facility] Comment on above: The drugs N-Acetylcy steine and Metamizole may falsely depress this assay.Serum Triglycerides Reference Interval Normal <150 mg/dL Borderline high 150 - 199 mg/dL High 200 - 499 mg/dL Very High > or = 500 mg/dL Laboratory - Chemistry and C hemistry - challengeOrdered By: Dr. Maza on 04-05-2022 CO2 [Moles/Vol] 31.0 mmol/L 21.0-32.0 [facility] Urea nitrogen/Creatinine [Mass ratio] 22.4 mg/mg - [facility] No Panel InformationOrdered By: Dr. Maza on 04-05-2022 Estimated GFR (MDRD) Amer 102 mL/min >60 [facility] Comment on above: GFR Calc Estimated GFR (MDRD) Non-Af Amer 85 mL/min >60 [facility] Comment on above: Non- GFR Calc Prostate Specific Antigen Screen 6.28 ng/mL 0.00-4.00 [facility] Comment on above: This test was perfor med using the TPSA assay method [facility]. Values obtained with differentassay methods cannot be used interchangably.When changing PSA assays in the course of monitoring apatient, additional sequential testing should be carriedout to confirm baseline values. Vitamin D 25-Hydroxy 102.4 ng/mL [facility] Comment on above: Vitamin D 25(OH) Sta tus Range Deficiency <20 ng/mL (50nmol/L) Insufficiency 20 - 30 ng/mL (50 - 75 nmol/L) Sufficiency 30 - 100 ng/mL (75 - 250 nmol/L) Toxicity >100 ng/mL (>250 nmol/L)Evidence suggests that patients undergoing fluorescein dye angiography can retain small amounts of fluorescein in the body for up to 48 to 72 hours post-treatment. In the cases of patients with renal insufficiency, retention could be much longer. Samples containing fluorescein can produce falsely elevated values when tested with the [employer] Vitamin D assay. With fluorescein interference, observed Vitamin D values can be as high as >150 ng/mL (>375 nmol/L). Samples should be resubmitted post fluorescein clearance to ensure there is no interference with Vitamin D test results. Serum or plasma calcium remberto urement (mass/volume)Ordered By: Dr. Maza on 04-05-2022 Calcium [Mass/Vol] 9.3 mg/dL 8.5-10.[address] [facility] Serum or plasma cholesterol in HDL measurement (mass/volume)Ordered By: Dr. Maza on 04-05-2022 Cholesterol in HDL [Mass/Vol] 40 mg/dL >40 [facility] Comment on above: The drugs N-Acetylcy steine and Metamizole may falsely depress this assay. Reference Range HDL <40 mg/dL Low HDL Cholesterol HDL >or= 60 mg/dL High HDL Cholesterol Serum or plasma cholesterol in VLDL measurement (mass/volume)Ordered By: Dr. Maza on 04-05-2022 Cholesterol in VLDL [Mass/Vol] 25 mg/dL 5-40 [facility] Serum or plasma creatinine m easurement (mass/volume)Ordered By: Dr. Maza on 04-05-2022 Creatinine [Mass/Vol] 0.94 mg/dL 0.70-1.30 [facility] Comment on above: The validity of the calculated GFR & GFRAA in patients over 70 years has not been determined. Clinical correlation is essential. Serum or plasma low density lipoprotein (LDL) cholesterol measurement (mass/volume)Ordered By: Dr. Maza on 04-05-2022 Cholesterol in LDL [Mass/Vol] 118 mg/dL 0-130 [facility] Serum or plasma urea nitroge n measurement (mass/volume)Ordered By: Dr. Maza on 04-05-2022 Urea nitrogen [Mass/Vol] 21 mg/dL 7-18 [facility] Thin prep Papanicolaou smear with manual screeningOrdered By: Dr. Maza on 04-05-2022 Thin prep Papanicolaou smear with manual screening 6 5-15 [facility] CNOVon 05-26-2021 CNOV Office Visit (GENSWS ) LUCIA SUMMERS ([id number]) 1950 M Date Time Provider Department 05/26/21 2:30 PM MARY FIGUEROA During your visit today, we recorded the following information about you: Temperature Pulse Blood pressure Weight 98.4 degrees 89/minute 136/78 86.1 kg Height 1.676 m Mary Figueroa PA-C 05/26/2021 2:50 PM Signed The following instructions are important for you related to your office visit today with the [facility] Surgeons. INSTRUCTIONS FOLLOWING YOUR RECENT HERNIA SURGERY You should be returning to your regular diet, If you have having persistent issues with tolerating your diet, please contact our office It is not unusual to have incisional pain for the first 1-2 weeks following surgery. If this persists beyond 2 weeks, contact the office You should leave the Steri-Strips in place until they fall off. You may return to your regular activities. You may drive if you are no longer taking narcotic pain medication. Climbing stairs is fine. Walking in encouraged. Sitting up from bed may be uncomfortable. Sitting up using your lateral abdominal muscles (sitting up sideways) is usually more comfortable. You should perform no lifting greater than 20lbs for the next 6-7 weeks. Usually 8 weeks total from the date of surgery. It is not unusual to have loose stools following surgery. This is usually self limited and related to the antibiotics that were given during your surgical procedure. Fiber supplementation and yogurt with active cultures may help you return to regular bowel activity. If you note loose stools persisting for over 2 weeks, or significant cramping or loose bloody stools, contact the office immediately. Contact the office immediately if any of your incisions become increasingly tender, red or have drainage. Again, if you have any difficulties or concerns, contact our office immediately. If you note any additional difficulties, questions, or concerns, you should contact our office immediately @ [phone] and ask to be transferred to the General Surgery department. Mary Figueroa PA-C 05/31/2021 4:14 PM Signed FOLLOW UP VISIT - HERNIA NAME: Lucia [facility] NO.: [id number] DATE OF SERVICE: 05/26/2021 : 1950 REFERRING PHYSICIAN: Jean-Paul Maza MD, Lucia is a patient I am following for [...] ?C (98.4 ?F), height 167.6 cm (5' 6"), weight 86.1 kg (189 lb 12.8 oz), [...] all above and agreed with the plan. Mary Figueroa PA-C Referring Provider: JEAN-PAUL MAZA [[id number]] Allergies As of Date: 05/26/2021 (No Known Allergies) Date Reviewed: 05/26/2021 Reviewed by: Esme Ortiz LPN - Fully Assessed Reason for Visit: Follow Up [171] Cmt: hernia surgery Primary Visit Diagnosis:S/P hernia repair [Z98.890, Z87.19] Prescriptions as of 05/31/2021 - lisinopril (ZESTRIL, PRINIVIL) 10 mg tablet Take by mouth once daily. - OFEV 100 mg capsule once daily. - docosahexaenoic acid/epa (FISH OIL ORAL) Take by mouth once daily. - cholecalciferol, vitamin D3, (VITAMIN D3 ORAL) Take by mouth once daily. - lisinopril-hydrochlor othiazide (PRINZIDE,ZESTORETIC) 10-12.5 mg per tablet - MULTI-VITAMIN ORAL Take by mouth. Problem List As Of Date 05/26/2021 Noted Resolved CONSTIPATION NOS [K59.00] GI SYSTEM SYMPTOMS NEC [R19.8] Left inguinal hernia [K40.90] 05/19/2021 05/19/2021 Other instructions from your clinician: The following instructions are important for you related to your office visit today with the [facility]. INSTRUCTIONS FOLLOWING YOUR RECENT HERNIA SURGERY You christiana (more content not included)... Normal [facility] CNPNon 05-20-2021 SONNYN Telephone (BLANQUITA) LUCIA SUMMERS ([id number]) 1950 M Date Time Provider Department 05/20/21 JADON POWERS During your visit today, we recorded the following information about you: Esme Ortiz LPN 05/20/2021 10:55 AM Signed Patient called stated not taking lisinopril, however is taking lisinopril/HCTZ, wanted medication list updated from visit. Allergies As of Date: 05/20/2021 (No Known Allergies) Date Reviewed: 05/19/2021 Reviewed by: Tej Cheatham RN - Fully Assessed Reason for Visit: Patient Update [1234] Cmt: medication update lisinopril Prescriptions as of 05/20/2021 - oxyCODONE-acetaminoph en (PERCOCET) 5-325 mg tablet Take 1 tablet by mouth every 6 hours as needed for up to 5 days. - lisinopril (ZESTRIL, PRINIVIL) 10 mg tablet Take by mouth once daily. - OFEV 100 mg capsule once daily. - docosahexaenoic acid/epa (FISH OIL ORAL) Take by mouth once daily. - cholecalciferol, vitamin D3, (VITAMIN D3 ORAL) Take by mouth once daily. - lisinopril-hydrochlor othiazide (PRINZIDE,ZESTORETIC) 10-12.5 mg per tablet - MULTI-VITAMIN ORAL Take by mouth. Problem List As Of Date 05/20/2021 Noted Resolved CONSTIPATION NOS [K59.00] GI SYSTEM SYMPTOMS NEC [R19.8] Left inguinal hernia [K40.90] 05/19/2021 05/19/2021 Encounter Status:Closed by ESME ORTIZ on 05/20/21 [facility] ANES POSTPROC EVALon 022 ANES POSTPROC EVAL HNO ID: [id number] Author: Edgar Ramon MD Service: Anesthesiology Author Type: Physician Type: Anesthesia Postprocedure Evaluation Filed: 05/19/2021 12:58 PM Note Text: POST ANESTHESIA EVALUATION NOTE : 1950 Procedure Summary Date: 05/19/21 Room / Location: [place] OR04 / [place] Anesthesia Start: 1048 Anesthesia Stop: 1222 Procedure: HERNIORRHAPHY INGUINAL ELECTIVE ADULT REDUCIBLE (Left Groin) Diagnosis: Left inguinal hernia Surgeons: Jadon Powers MD Responsible Provider: Edgar Ramon MD Anesthesia Type: general ASA Status: 2 Anesthesia Type: general Airway Type: ETT Last Vitals Vitals Value Taken Time BP 136/79 05/19/21 1245 Temp 36.6 ?C (97.9 ?F) 05/19/21 1245 Pulse 69 05/19/21 1256 Resp 17 05/19/21 1256 SpO2 92 % 05/19/21 1256 Vitals shown include unvalidated device data. Post Anesthesia Patient Status Patient Evaluation: PACU. PACU/ICU Patient Condition: stable. Anticipated Disposition: phase 2 then home. Neurological Status: aware and responsive. Pulmonary Status: breathing comfortably on room air Airway Control: returned to baseline unsupported. Cardiovascular Status: stable. Pain Management: clinically adequate - multimodal analgesia pain management approach Postoperative Hydration: acceptable. Intraoperative Events: no significant anesthesia events Recommendation: continue current plan of care. Anesthesia Observations No Documentation SIGNATURE: Edgar Ramon MD PATIENT NAME: Lucia Summers DATE: May 19, 2021 TIME: 12:57 PM CSN: [id number] [facility] ANES PRE-OPon 05-19-2021 ANES PRE-OP HNO ID: [id number] Author: Edgar Ramon MD Service: Anesthesiology Author Type: Physician Type: Anesthesia Preprocedure Evaluation Filed: 05/19/2021 9:40 AM Note Text: ANESTHESIOLOGY DAY OF SURGERY NOTE : 1950 Procedure Information Date/Time: 05/19/21 1045 Procedure: HERNIORRHAPHY INGUINAL ELECTIVE ADULT REDUCIBLE (Left ) Location: [place] [address] / [place] Surgeons: Jadon Powers MD There is no height or weight on file to calculate BMI. Most recent hematocrit and potassium results: No results found for this basename: HCT,HEMATOCRIT,K,POTA SSIUM Relevant Problems No relevant active problems I - PHYSICAL EVALUATION AIRWAY Patient intubated: No. Mallampati: II. TM distance: >3 FB. Neck ROM: full ROM without neurological symptoms. Mouth opening: adequate. Short neck: no. Thick neck: no DENTAL Dental findings: teeth intact. Additional exam findings: no II - ANESTHESIA PLAN ASA Score: 2 Anesthetic Plan: general Airway type: ETT NPO Status: adequate Monitoring plan: Standard ASA. Postoperative analgesic plan: parenteral or oral opioids and multimodal analgesia. Anesthetic Risks, Benefits, Alternatives, Personnel Discussed. Consent obtained from: patient.Patient / Surrogate agrees to blood products: yes DNR status not reviewed with patient and/or family prior to surgery. Significant changes in the patient condition since the History and Physical, not otherwise documented in primary service progress note: no. Potential Anesthesia issues that may suggest increased risk of complications or contraindication to planned procedure: none. Vitals Value Taken Time BP 158/104 05/19/21936 Pulse 81 05/19/21936 Resp 16 05/19/21936 Temp 36.8 ?C (98.2 ?F) 05/19/21936 SpO2 97 % 05/19/21936 Facility-Administered Medications as of 05/19/2021 Medication Dose Route Frequency - lactated ringers iv infusion 5-30 mL/hr INTRAVENOUS CONTINUOUS - ceFAZolin iv piggyback 2 g in D5W (iso-osmotic) 100 mL (ANCEF) 2 g INTRAVENOUS Pre-Op Once Outpatient Medications as of 05/19/2021 Medication Sig - lisinopril (ZESTRIL, PRINIVIL) 10 mg tablet Take by mouth once daily. - lisinopril-hydrochlor othiazide (PRINZIDE,ZESTORETIC) 10-12.5 mg per tablet - OFEV 100 mg capsule once daily. (Patient not taking: Reported on 04/27/2021 ) - docosahexaenoic acid/epa (FISH OIL ORAL) Take by mouth once daily. - cholecalciferol, vitamin D3, (VITAMIN D3 ORAL) Take by mouth once daily. - MULTI-VITAMIN ORAL Take by mouth. I have interviewed and examined the patient. I have reviewed the medical record and/or the pre-anesthesia evaluation, pertinent labs, and test results. This contains updated information obtained within 48 hours of Surgery/Procedure. SIGNATURE: Edgar Ramon MD PATIENT NAME: Lucia Summers DATE: May 19, 2021 TIME: 9:40 AM CSN: [id number] Normal [facility] HISTORY PHYSICALon HISTORY PHYSICAL HNO ID: [id number] Author: Jadon Powers MD Service: General Surgery Author Type: Physician Type: HANDP Filed: 05/19/2021 10:16 AM Note Text: HISTORY AND PHYSICAL ? Lucia Summers 1950 ? ? REFERRING PHYSICIAN: Jadon Powers MD ? CHIEF COMPLAINT: Follow Up (review CT scan) ? HPI: Lucia is a 70 year old male with a complaint of?a bulge ?and discomfort ?in his left inguinal region. ?The patient notes discomfort in this area with lifting, straining and coughing. ?The symptoms have increased, over the past?few?months. ? The patient notes no symptoms of bowel obstruction and denies nausea or vomiting. The patient was seen by?his?primary care physician ?who felt the patient has a hernia. ?Lucia was referred for evaluation and treatment. ? CT scan did confirm a left inguinal hernia with the sigmoid colon located within it. ? PAST MEDICAL HISTORY PAST MEDICAL HISTORY Diagnosis Date - Encounter for screening colonoscopy 02/15/2016 - Essential hypertension ? - Other symptoms involving digestive system(787.99) ? - Unspecified constipation ? ? ? PAST SURGICAL HISTORY PAST SURGICAL HISTORY Procedure Laterality Date - COLONOSCOP W/ OR W/O [facility] SPEC ? 01/26/06 - COLONOSCOP W/ OR W/O [facility] SPEC ? 02/15/2016 - REPAIR UMBILICAL LANA,5+Y/O,REDUC ? 03/18 ? Hernia repair, umbilical >5yr ? ? ? CURRENT MEDICATIONS Current Outpatient Medications Medication Sig - lisinopril (ZESTRIL, PRINIVIL) 10 mg tablet Take by mouth once daily. - docosahexaenoic acid/epa (FISH OIL ORAL) Take by mouth once daily. - cholecalciferol, vitamin D3, (VITAMIN D3 ORAL) Take by mouth once daily. - lisinopril-hydrochlor othiazide (PRINZIDE,ZESTORETIC) 10-12.5 mg per tablet ? ? - MULTI-VITAMIN ORAL Take by mouth. - OFEV 100 mg capsule once daily. (Patient not taking: Reported on 04/27/2021 ) ? No current facility-administered medications for this visit. ? ? ALLERGIES: Patient has no known allergies. ? PERSONAL HISTORY: SOCIAL HISTORY Social History ? Tobacco Use - Smoking status: Never Smoker - Smokeless tobacco: Never Used Vaping Use - Vaping Use: Never used Substance Use Topics - Alcohol use: Not Currently ? ? Comment: rarely a wine cooler - Drug use: No ? FAMILY HISTORY: FAMILY HISTORY FAMILY HISTORY Problem Relation Age of Onset - Alcohol/Drug Brother ? - COPD Brother ? ? ? REVIEW OF SYSTEMS: ?General:???The patient denies fatigue, denies weight loss, denies weight gain, denies feeling hot, and denies feelings of cold. ?Eyes: ?The patient denies glaucoma, denies eye injury/surgery, does not wear glasses or contacts. ?Ear/Nose/Throat: ?The patient denies allergies, denies hayfever, denies ear infections, and denies bloody noses. ?Cardiovascular: ?The patient denies chest pain, denies heart disease, NOTES high blood pressure,denies cardiac stent, denies prior heart attack, denies irregular heart beat, denies high cholesterol, ?denies poor circulation, denies heart failure, other cardiac issues, denies claudication, denies cold feet, denies peripheral arterial stent. ?Respiratory: ?The patient denies tuberculosis, denies pneumonia, denies frequent cough, denies pulmonary embolism, denies shortness of breath, and denies coughing up blood, NOTES other lung problems: ??Gastrointestinal: ?The patient denies difficulty swallowing, denies acid reflux, denies ulcers, denies vomiting, denies jaundice/hepatitis, denies gallbladder problems, denies black or tarry stools, denies hemorrhoids, denies bleeding from rectum, denies diverticulitis, denies constipation, denies diarrhea, denies loss of stool control, and denies hernias. ?Kidney/Bladder: ?The patient denies kidney stones, denies urine infections, and denies bloody urine. ?Skin: ?The patient denies a history of skin cancer, denies bleeding/changing moles, and denies a history of skin rash. ?Neurologic: ?The patient denies a history of epilepsy/convulsions, denies headaches, denies head/spinal injuries, and denies stroke/TIA. ?Psychiatric: ?The patient denies psychiatric medications, denies depression, and denies voices, denies substance abuse. ?Endocrine: ?The patient denies thyroid disorders, denies diabetes, and denies hormonal problems. ?Hematologic: ?The patient denies a history of bruising, denies bleeding, and denies anemia, denies blood clots. ?Infections: ?The patient denies a history of measles and mumps, denies rheumatic fever, and denies sexually transmitted diseases. ?Musculoskeletal: ?The patient denies back pain/injury, denies back problems, denies sciatica, denies knee/foot trouble, denies arthritis, or denies gout. ? PHYSICAL EXAMINATION: ? General: The patient is 70 year old male, well nourished, well hydrated in no acute distress. The patient is oriented to time, place, and (more content not included)... Normal [facility] OPERATIVE NOon 05-19-2021 OPERATIVE NO HNO ID: [id number] Author: Jadon Powers MD Service: General Surgery Author Type: Physician Type: Operative Report Filed: 05/19/2021 12:23 PM Note Text: OPERATIVE/PROCEDURE REPORT LOG ID: [id number] SURGERY/PROCEDURE DATE: 05/19/2021 INCISION/PROCEDURE START TIME: 11:14 AM INCISION CLOSE/PROCEDURE END TIME: 12:11 PM SURGEON(S)/PROCEDURAL IST(S) AND WAREHOUSE WORKER 2ND SHIFT(S): Surgeon(s) and Role: * Jadon Powers MD - Primary Physician Fruit Room Hand: Mariella Caal PA-C SURGERY/PROCEDURE(S): Left inguinal hernia repair with mesh ANESTHESIA: General SURGERY/PROCEDURE DETAILS: Patient was brought into the operating room. Placed in the supine position. Under excellent general anesthetic left inguinal area was sterilely prepped draped in usual fashion. Local was injected incision was made. Dissection was taken down superior inferior epigastric vessels were tied off with 2-0 Vicryl ties dissection was taken down to the external Bleich fascia this was opened and lengthened both in a cephalad and in inferior direction. Ilioinguinal nerve was identified it was spared laterally. Patient was noted to have a direct inguinal hernia I dissected this free and placed it back into its preperitoneal space took the cremasteric muscles down as well. I placed a large Covidien mesh plug into the wound. I sutured it to the surrounding tissue with 2 Prolenes. I then placed the onlay piece of mesh tacking it to the pubic tubercle with a 2-0 Prolene x2. I ran the 1 along the ileal inguinal ligament and the other suture along the transversalis fascia bringing the cord and vessels as well as the ilioinguinal nerve through the wei ring. I sutured the Prolene sutures superiorly to the wei ring making sure that I had enough space to accept my fifth finger. Once this was done local was injected. External bleak fascia was then brought together with 2-0 Vicryl. Pradeep's layer was brought together with 2-0 Vicryl. Deep dermals with 3-0 Vicryl then a running 4-0 Monocryl Steri-Strips were applied sterile dressings were applied and the patient tolerated the procedure well. Mariella Caal was my mobile sales assistant. She assisted with retraction, visualization and performed skin closure. No additional surgeons or qualified residents were available. PRE-OP/PRE-PROCEDURE DIAGNOSIS: Left inguinal hernia POST-OP/POST-PROCEDUR E DIAGNOSIS: Same as Preop ESTIMATED BLOOD LOSS: < 15 mls SPECIMENS: None IMPLANTABLE DEVICES: Can vidian mesh plug DRAINS: None COMPLICATIONS: None PARTICIPATION IN SURGERY/PROCEDURE: I/primary surgeon/proceduralist performed the procedure with assistance. SIGNATURE: Jadon Powers III, MD PATIENT NAME: Lucia Summers DATE: May 19, 2021 TIME: 12:19 PM Normal [facility] 05-17-2021 [facility] Telephone (BLANCAJintronixRachele) LUCIA SUMMERS ([id number]) 1950 Date Time Provider Department 05/17/21 JADON POWERS During your visit today, we recorded the following information about you: Daphne Overton RN 05/17/2021 2:42 PM Signed CALLED SPOKE WITH PT, VERBALIZED UNDERSTANDING OF ALL INSTRUCTIONS BELOW PATIENT PREOPERATIVE INSTRUCTIONS DR POWERS has scheduled you for your procedure at this surgery center: [facility]: [phone] -- [address] [place] [id number]. Dietary Restrictions: - No solid food after midnight. - You may have 12 ounces of clear liquids (water, clear juices such as apple juice or gatorade, carbonated beverages, clear tea, black coffee, jello) until 2 hours before scheduled arrival at facility. - Do not drink any alcohol after midnight the night before your surgery. Medications: Unless instructed differently below, stay on all of your medications until your surgery. Approved medications to take the morning of surgery with a sip of water: NONE - No diabetic medication the morning of surgery. If you take any medications for erectile dysfunction-Cialis (Tadalafil), Levitra, Staxyn (Vardenafil) Viagra (Sildenenafil please do not take these for 48 hours before surgery. If you start any new medications after today's visit, please contact the surgeon's office. Blood Thinning Medications: - Stop NSAIDS (Ibuprofen, Advil, Aleve, Motrin, Celebrex, Mobic, etc.) 7 days before surgery, as directed by your surgeon. - Do NOT stop aspirin or other anticoagulants without consulting with your city constable or prescribing physician. - Stop Vitamin E, ALL multi-vitamins, herbals and dietary supplements 7 days before surgery. - You may take Tylenol (Acetaminophen) or any of your pain medications that do not contain aspirin or NSAIDS as needed. Important Reminders: - If you use CPAP/BIPAP, bring the machine with you to the surgery center. - If you are prescribed inhalers for breathing, continue using them. If you are on dialysis, please check with your dialysis center or security director to see if any adjustments need to be made to your schedule for the week of your surgery - Candy, mints, and tobacco products are NOT permitted the morning of surgery. - Hearing aids, dentures and glasses may be worn the morning of surgery. - NO jewelry, body piercings, makeup, hairpins or contacts are to be worn the day of surgery. If you develop symptoms such as a fever, cold, or flu, or have other changes to your health within TWO DAYS of scheduled surgery or the morning of surgery, please contact the surgery center above. Personal Belongings: -Please have photo ID and insurance cards. -If you do not have a copy of advance directives on file with us, please bring a copy with you on the day of surgery. - Leave ALL valuables and money at home or with family members. Arrival Time for Surgery: - The Surgery Center or hospital where you are having surgery will call the afternoon before surgery (or Monday for Monday surgery) with a scheduled arrival time. - If you have not heard by 4 pm, please contact the surgery center above. Please be aware that emergency situations arise, which may delay or change your surgical time. If this happens, we will notify you as soon as possible and regret any inconvenience. If you already have an Advance Directive, please fax a copy to [phone] or email to [email or web address] for it to be added to your chart. If you do not have an Advance Directive, you can find the appropriate form and more information at [email or web address]. We recommend that you complete the Advance Directive form found on the website and bring it with you the day of your surgery. It can be witnessed and scanned into your chart that day. If you have any further questions or concerns prior to your upcoming procedure, please contact your surgeon's office, [facility] CHANGE IN HEALTH. Thank you Daphne Overton RN Allergies As of Date: 05/17/2021 (No Known Allergies) Date Reviewed: 04/27/2021 Reviewed by: Jadon Powers MD - Fully Assessed Reason for Visit: PreOp Call [[id number]] Prescriptions as of 05/17/2021 - lisinopril (ZESTRIL, PRINIVIL) 10 mg tablet Take by mouth once daily. - OFEV 100 mg capsule once daily. - docosahexaenoic acid/epa (FISH OIL ORAL) Take by mouth once daily. - cholecalciferol, vitamin D3, (VITAMIN D3 ORAL) Take by mouth once daily. - lisinopril-hydrochlor othiazide (PRINZIDE,ZESTORETIC) 10-12.5 mg per tablet - MULTI-VITAMIN ORAL Take by mouth. Problem List As Of Date 05/17/2021 Noted Resolved CONSTIPATION NOS [K59.00] GI SYSTEM SYMPTOMS NEC [R19.8] Encounter Status:Closed by DAPHNE OVERTON on 05/17/21 [facility] CNOVon 04-27-2021 CNOV Office Visit (GENSWS ) LUCIA SUMMERS ([id number]) 1950 Date Time Provider Department 04/27/21 3:50 PM JADON POWERS During your visit today, we recorded the following information about you: Temperature Pulse Blood pressure Weight 98.7 degrees 89/minute 126/80 86.2 kg Jadon Powers III, MD 04/27/2021 4:21 PM Signed HISTORY AND PHYSICAL Lucia Summers 1950 REFERRING PHYSICIAN: Jadon Powers MD CHIEF COMPLAINT: Follow Up (review CT scan) HPI: Lucia is a 70 year old male with [...] who felt the patient has a hernia. Lucia was referred for evaluation and treatment. CT scan did confirm a left inguinal hernia with the sigmoid colon located within it. PAST MEDICAL HISTORY Diagnosis Date - Encounter for screening colonoscopy 02/15/2016 - Essential hypertension - Other symptoms involving digestive system(787.99) - Unspecified constipation PAST SURGICAL HISTORY Procedure Laterality Date - COLONOSCOP W/ OR W/O [facility] SPEC 01/26/06 - COLONOSCOP W/ OR W/O [facility] SPEC 02/15/2016 - REPAIR UMBILICAL LANA,5+Y/O,REDUC 03/18 Hernia repair, umbilical >5yr Current Outpatient Medications Medication Sig - lisinopril (ZESTRIL, PRINIVIL) 10 mg tablet Take by mouth once daily. - docosahexaenoic acid/epa (FISH OIL ORAL) Take by mouth once daily. - cholecalciferol, vitamin D3, (VITAMIN D3 ORAL) Take by mouth once daily. - lisinopril-hydrochlor othiazide (PRINZIDE,ZESTORETIC) 10-12.5 mg per tablet - MULTI-VITAMIN [...] time, place, and person. VITALS: Blood pressure (more content not included)... Normal [facility] CNPNon 04-27-2021 CNPN Telephone (GENSWS) LUCIA SUMMERS ([id number]) 1950 M Date Time Provider Department 04/27/21 PEANUT, BUTTER (HISTORICAL) GENSWS During your visit today, we recorded the following information about you: Pedor Santacruz 04/27/2021 4:45 PM Signed 05-19-2021 Open Left inguinal hernia Allergies As of Date: 04/27/2021 (No Known Allergies) Date Reviewed: 04/27/2021 Reviewed by: Jadon Powers MD - Fully Assessed Reason for Visit: 05-19-2021 Open Left inguinal hernia [Other] Prescriptions as of 05/27/2021 - lisinopril (ZESTRIL, PRINIVIL) 10 mg tablet Take by mouth once daily. - OFEV 100 mg capsule once daily. - docosahexaenoic acid/epa (FISH OIL ORAL) Take by mouth once daily. - cholecalciferol, vitamin D3, (VITAMIN D3 ORAL) Take by mouth once daily. - lisinopril-hydrochlor othiazide (PRINZIDE,ZESTORETIC) 10-12.5 mg per tablet - MULTI-VITAMIN ORAL Take by mouth. Problem List As Of Date 04/27/2021 Noted Resolved CONSTIPATION NOS [K59.00] GI SYSTEM SYMPTOMS NEC [R19.8] Encounter Status:Closed by ISABEL SANTACRUZIE on 05/27/[address] [facility] [address] PELVIS WO IVCONon 021 CT PELVIS WO IVCON * * *Final Report* * * DATE OF EXAM: Apr 14 2021 2:59PM [facility] 0556 - CT PELVIS WO IVCON / PROCEDURE REASON: Irreducible left inguinal hernia * * * * Physician Interpretation * * * * CT PELVIS HISTORY: Irreducible LEFT inguinal hernia TECHNIQUE: CT imaging was performed through the pelvis without the IV administration of intravenous contrast. Oral contrast (900 cc consisting of 50 cc Omnipaque 240 and 850 cc of water) was administered CT Radiation dose: Integrated Dose-length product (DLP) for this visit = 332 mGy*cm. CT Dose Reduction Employed: Automated exposure control(AEC) and iterative recon Findings: There is a LEFT inguinal hernia containing a nondilated loop sigmoid colon. The hernia extends inferiorly to the scrotum. The length of the hernia is approximately 14 cm. The maximal proximal axial dimensions are about 5 x 4.6 cm. No fluid noted in the hernia sac. Small RIGHT inguinal hernia containing fat about 2.5 cm in length and about 1 cm in width. No dilated bowel. No lymphadenopathy. No pelvic free fluid No bony lesion IMPRESSION: Large LEFT inguinal hernia containing nondilated sigmoid colon extending into the scrotum. 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: PSCB Transcribe Date/Time: Apr 14 2021 4:33P Dictated by : LIVAN LOUIS MD This examination was interpreted and the report reviewed and electronically signed by: LIVAN LOUIS MD on Apr 14 2021 4:37PM EST [id number] Normal [facility] CNOVon 04-08-2021 CNOV Office Visit (GENSWS ) LUCIA SUMMERS ([id number]) 1950 M IPA Date Time Provider Department 04/08/21 3:20 PM JADON POWERS During your visit today, we recorded the following information about you: Temperature Pulse Blood pressure Weight 97.9 degrees 84/minute 138/86 84.4 kg Jadon Powers III, MD 04/13/2021 8:34 AM Signed HISTORY AND PHYSICAL Lucia Summers 1950 REFERRING PHYSICIAN: Jean-Paul Maza MD CHIEF COMPLAINT: Consult and Hernia HPI: Lucia is a 70 year old male with [...] who felt the patient has a hernia. Lucia was referred for evaluation and treatment. The patient is being seen by me today at the request of Dr. Jean-Paul Maza MD, MD for my opinion and advice regarding Irreducible left inguinal hernia (primary encounter diagnosis). PAST MEDICAL HISTORY Diagnosis Date - Encounter for screening colonoscopy 02/15/2016 - Essential hypertension - Other symptoms involving digestive system(787.99) - Unspecified constipation PAST SURGICAL HISTORY Procedure Laterality Date - COLONOSCOP W/ OR W/O [facility] SPEC 01/26/06 - COLONOSCOP W/ OR W/O [facility] SPEC 02/15/2016 - REPAIR UMBILICAL LANA,5+Y/O,REDUC [...] as designated per enteric contrast guidelines - lisinopril-hydrochlor othiazide (PRINZIDE,ZESTORETIC) 10-12.5 mg per tablet (Patient not [...] entered by the nurse and reviewed by me Nursing Notes: Elizabeth Palacios Ma 04/08/2021 3:55 [...] denies bleeding, and denies anemia, denies blood clot (more content not included)... Normal [facility] CNPNon 04-07-2021 CNPN Telephone ([employer]) LUCIA SUMMERS ([id number]) 1950 M [facility] Date Time Provider Department 04/07/21 JADON POWERS During your visit today, we recorded the following information about you: Esme Ortiz LPN 04/07/2021 11:16 AM Signed Spoke to Dr Jean-Paul Hinkle office medical records requested last office visit to be faxed over for appointment on 04/08/[address] Powers, for Hernia consult. Allergies As of Date: 04/07/2021 (No Known Allergies) Date Reviewed: 02/15/2016 Reviewed by: Karlos Billings RN - Fully Assessed Reason for Visit: patient last visit [Other] Cmt: Dr Jean-Paul Hinkle Prescriptions as of 04/07/2021 - lisinopril-hydrochlor othiazide (PRINZIDE,ZESTORETIC) 10-12.5 mg per tablet - MULTI-VITAMIN ORAL Take by mouth. Problem List As Of Date 04/07/2021 Noted Resolved CONSTIPATION NOS [K59.00] GI SYSTEM SYMPTOMS NEC [R19.8] Encounter Status:Closed by ESME ORTIZ on 04/07/21 Normal [facility] Vital Signs Date Time Vital Sign Value Performing Clinician Faci lity 12-05-2024 08:49-0400 Body height 167.[address] Jean-Paul Maza MD Work Phone: [facility] 12-05-2024 08:49-0400 Body mass index (BMI) [Ratio] 28.2 kg/m2 Dr. Jean-Paul Maza MD Work Phone: [facility] 12-05-2024 08:49-0400 Body weight 79.[address] Jean-Paul Maza MD Work Phone: [facility] 12-05-2024 08:49-0400 Diastolic blood pressure 78 mm[Hg] Dr. Jean-Paul Maza MD Work Phone: [facility] 12-05-2024 08:49-0400 Heart rate 75 /min Dr. Jean-Paul Maza MD Work Phone: [facility] 12-05-2024 08:49-0400 Respiratory rate 18 /min Dr. Jean-Paul Maza MD Work Phone: [facility] 12-05-2024 08:49-0400 SaO2% (BldA) [Mass fraction] 92 % Dr. Jean-Paul Maza MD Work Phone: [facility] 12-05-2024 08:49-0400 Systolic blood pressure 132 mm[Hg] Dr. Jean-Paul Maza MD Work Phone: [facility] 06-15-2023 14:01-0500 Diastolic blood pressure 93 mm[Hg] Dr. Jean-Paul Maza Work Phone: [facility] 06-15-2023 14:01-0500 Heart rate 69 /min Dr. Jean-Paul Maza Work Phone: [facility] 06-15-2023 14:01-0500 Systolic blood pressure 146 mm[Hg] Dr. Jean-Paul Maza Work Phone: [facility] 06-15-2023 13:43-0500 Body height 167.[address] Jean-Paul Maza Work Phone: [facility] 06-15-2023 13:43-0500 Body mass index (BMI) [Ratio] 31.1 kg/m2 Dr. Jean-Paul Maza Work Phone: [facility] 06-15-2023 13:43-0500 Body weight 87.[address] Jean-Paul Maza Work Phone: [facility] 06-15-2023 13:43-0500 Respiratory rate 18 /min Dr. Jean-Paul Maza Work Phone: [facility] 01-23-2023 05:58-0400 Body height 167.[address] Jean-Paul Maza Work Phone: [facility] 01-23-2023 05:58-0400 Body mass index (BMI) [Ratio] 29.8 kg/m2 Dr. Jean-Paul Maza Work Phone: 9(535)741-321183 [address] 01-23-2023 05:58-0400 Body temperature 97.7 [degF] Dr. Jean-Paul Maza Work Phone: 2(438)796-583591 [place] [address] 01-23-2023 05:58-0400 Body weight 83.[address] Jean-Paul Maza Work Phone: 2(516)842-800991 [place] [address] 01-23-2023 05:58-0400 Diastolic blood pressure 97 mm[Hg] Dr. Jean-Paul Maza Work Phone: [facility] 01-23-2023 05:58-0400 Heart rate 73 /min Dr. Jean-Paul Maza Work Phone: [facility] 01-23-2023 05:58-0400 Respiratory rate 17 /min Dr. Jean-Paul Maza Work Phone: [facility] 01-23-2023 05:58-0400 SaO2% (BldA) [Mass fraction] 97 % Dr. Jean-Paul Maza Work Phone: [facility] 01-23-2023 05:58-0400 Systolic blood pressure 158 mm[Hg] Dr. Jean-Paul Maza Work Phone: [facility] 06-01-2022 13:35-0500 Body height 167.[address] Jean-Paul Maza Work Phone: 3(882)383-069291 [place] [address] 06-01-2022 13:35-0500 Body mass index (BMI) [Ratio] 30.4 kg/m2 Dr. Jean-Paul Maza Work Phone: [facility] 06-01-2022 13:35-0500 Body weight 85.[address] Jean-Paul Maza Work Phone: [facility] 06-01-2022 13:35-0500 Diastolic blood pressure 98 mm[Hg] Dr. Jean-Paul Maza Work Phone: [facility] 06-01-2022 13:35-0500 Heart rate 91 /min Dr. Jean-Paul Maza Work Phone: [facility] 06-01-2022 13:35-0500 Respiratory rate 18 /min Dr. Jean-Paul Maza Work Phone: [facility] 06-01-2022 13:35-0500 Systolic blood pressure 163 mm[Hg] Dr. Jean-Paul Maza Work Phone: [facility] Encounters Encounter Date Encounter Type Care Provider Facility Start: 01-21-2025 ambulatory Jean-Paul Maza Facility:[facility] Start: 01-17-2025 ambulatory Jean-aPul Maza Facility:[facility] Start: 12-05-2024 End: 12-05-2024 Patient encounter procedure Maurisio PEDERSON -[facility] Work Phone: Start: 12-05-2024 End: 12-05-[address] Jean-Paul Maza MD Work Phone: -[facility] Start: 10-21-2024 End: 10-21-[address] Jean-Paul Maza MD Work Phone: -Laboratory [facility] Start: 10-21-2024 End: 10-21-[address] [facility] Start: 10-21-2024 End: 10-21-2024 ambulatory Jean-Paul Maza Facility:[facility] Start: 05-14-2024 Encounter for genera l adult medical examination without abnormal findings Jean-Paul Maza [facility] Start: 04-24-2024 End: 04-24-2024 ambulatory Jean-Paul Maza Facility:[facility] Start: 03-12-2024 End: 03-12-2024 ambulatory Jean-Paul Maza Facility:[facility] Start: 08-17-2023 End: 08-17-[address] Jean-Paul Maza Work Phone: [facility] Work Phone: Start: 08-17-2023 End: 08-17-[address] [facility] Work Phone: Start: 06-16-2023 End: 06-16-[address] Jean-Paul Maza Work Phone: [facility] Work Phone: Start: 06-16-2023 End: 06-16-[address] [facility]: Start: 06-15-2023 End: 06-15-[address] Jean-Paul Maza Work Phone: [facility] Work Phone: Start: 04-13-2023 End: 04-13-[address] Jean-Paul Maza Work Phone: [facility] Work Phone: Start: 04-13-2023 End: 04-13-[address] [facility]-Paul Maza [facility] [place] Work Phone: Start: 01-23-2023 End: 01-23-[address] Jean-Paul Maza Work Phone: [facility] Work Phone: Start: 06-27-2022 End: 06-27-[address] Jean-Paul Maza Work Phone: [facility] Work Phone: Start: 06-27-2022 End: 06-27-[address] Jean-Paul Maza Work Phone: [facility]-Laboratory Start: 06-13-2022 Non-patient / Non-visit Dr. Ross Maza Work Phone: [facility] Start: 06-10-2022 Non-patient / Non-visit Dr. Ross Maza Work Phone: [facility] Start: 06-10-2022 End: 06-10-[address] Jean-Paul Maza Work Phone: [facility] Work Phone: Start: 06-10-2022 End: 06-10-[address] Jean-Paul Maza Work Phone: [facility]-Cardiovascular Services Start: 06-01-[address] Rachell Maza Work Phone: [facility] Start: 06-01-2022 End: 06-01-2022 Admission to same day surgery center Dr. Jean-Paul Maza Work Phone: [facility] Start: 06-01-2022 End: 06-01-[address] Jean-Paul Maza Work Phone: [facility] Start: 05-25-2022 End: 05-25-2022 Non-patient / Non-visit Dr. Jean-Paul Maza Work Phone: [facility] Start: 05-25-2022 End: 05-25-[address] Jean-Paul Maza Work Phone: [facility] Work Phone: Start: 05-25-2022 End: 05-25-[address] Jean-Paul Maza Work Phone: [facility]-Pulmonary Services/Neurology Start: 05-24-2022 End: 05-24-[address] Jean-Paul Maza Work Phone: [facility]-Cat Scan, [facility] Start: 04-05-2022 End: 04-05-2022 ambulatory [facility] Work Phone: Start: 04-05-2022 End: 04-05-2022 Patient encounter procedure [facility] Start: 11-23-2021 Non-patient / Non-visit Dr. Ross Maza Work Phone: [facility] Start: 11-22-2021 End: 11-22-[address] Jean-Paul Maza Work Phone: [facility]-Pulmonary Services/Neurology Procedures Date Procedure Procedure Detail Performing Clinician Start: 06-10-2022 Cardiovascular stres s test using pharmacologic stress agent Dr. Jean-Paul Maza Work Phone: Start: 05-24-2022 CT of abdomen and pe lvis without contrast Dr. Jean-Paul Maza Work Phone: Plan of Treatment Date Care Activity Detail Author NM Heart Views W stress and W radionuclid e IV [facility] US Heart [facility] Immunizations Immunization Date Immunization Notes Care Provider Fa vickie 07-09-2020 Covid (Pfizer) Dr. Jean-Paul ruiz Work Phone: [facility] 06-18-2020 Covid (Pfizer) Dr. Jean-Paul ruiz Work Phone: [facility] Payers Date Payer Category Payer Self-pay [id number] 2024 Private Health Insurance 101 [id number] Medicare [id number] Unknown [id number] Unknown [id number] 2.16.8 [id number] Unknown [id number] 2.16.8 [id number] Unknown [id number] 2.16.8 [id number] Unknown [id number] 2.16.8 [id number] Unknown [id number] 2.16.8 [id number] Unknown [id number] 2.16.8 [id number] Social History Date Type Detail Facility Start: 04-22-2021 End: 06-15-2023 Tobacco smoking status UTIS Unknown if ever smoked [facility] Start: 1950 Sex Assigned At Male [facility] Start: 06-15-2023 Tobacco smoking stat us UTIS Never smoked tobacco (finding) [facility] Clinical Notes 04-08-2021 to 05-27-2022 Note Date & Type Note Facility 05-27-2022 Chief complaint+Reason for visit Narrative Reason for Visit Preoperative cardiovascular examination Abnormal ECG Essential (primary) hypertension Interstitial lung disease [facility] Work Phone: 1(899) 614-441702-10-2023 Chief complaint+Reason for visit Narrative * Chief Complaint GROSS HEMATURIA PRE-PROCEDURE (SURGERY 2/10)- ADD LABS PRE-PROCEDURE ABN EKG, CLEAR. FOR URETER STONE (WM) ABNORMAL ECG ABNORMAL ECG Reason for Visit Preoperative cardiov ascular examination Abnormal ECG Essential (primary) hypertension Interstitial lung disease [facility] Work Phone: 1(802) 895-114702-10-2023 Chief complaint+Reason for visit Narrative * Chief Complaint GROSS HEMATURIA PRE-PROCEDURE (SURGERY 2/10)- ADD LABS PRE-PROCEDURE ABN EKG, CLEAR. FOR URETER STONE (WM) ABNORMAL ECG ABNORMAL ECG PRE-OP LABS FOR WASC Reason for Visit Preoperative cardiov ascular examination Abnormal ECG Essential (primary) hypertension Interstitial lung disease [facility] Work Phone: 1(442) 972-561302-11-2022 NoteHNO ID: [id number] Author: Mary Figueroa PA-C Service: ? Author Type: Physician Fruit Room Hand Type: Progress Notes Filed: 05/31/2021 4:14 PM Note Text: FOLLOW UP VISIT - HERNIA NAME: Lucia [facility] NO.: [id number] DATE OF SERVICE: 05/26/2021 : 1950 REFERRING PHYSICIAN: Jean-Paul Maza MD, Lucia is a patient I am following for [...] ?C (98.4 ?F), height 167.6 cm (5' 6"), weight 86.1 kg (189 lb 12.8 oz), [...] all above and agreed with the plan. [facility]02-02-2022 NoteHNO ID: [id number] Author: Raphael Garnett RN Service: ? Author Type: Registered Nurse Type: Nursing Progress Note Filed: 05/19/2021 12:26 PM Note Text: During extubation and removal of tape patients lip started to bleed on [facility]02-02-2022 NoteHNO ID: [id number] Author: Amanda Duff APRN.BRANCH OPERATIONS SPECIALIST Service: ? Author Type: Nurse Small Parts Shaper Operator Type: Anesthesia Procedure Notes Filed: 05/19/2021 11:07 AM Note Text: ANESTHESIOLOGY PROCEDURE NOTE Airway General Information Procedure Start Time/Medication Administration: 05/19/2021 11:01 AM Patient location during procedure: OR Timeout Performed Pre-procedure: timeout performed Consent Obtained: Yes Patient identity confirmed: arm band, patient and family Staffing BRANCH OPERATIONS SPECIALIST: Amanda Duff APRN.BRANCH OPERATIONS SPECIALIST Performed by: CARMEN Indications and Patient Condition Preoxygenated: yes Patient [...] attempts at approach: 1 SIGNATURE: Amanda Duff APRN.BRANCH OPERATIONS SPECIALIST PATIENT NAME: Lucia Summers DATE: May 19, 2021 TIME: 11:06 AM CSN: [id number] NoteHNO ID: [id number] Author: Jadon Powers MD Service: ? Author Type: Physician Type: Progress Notes Filed: 04/27/2021 4:21 PM Note Text: HISTORY AND PHYSICAL Lucia Summers 1950 REFERRING PHYSICIAN: Jadon Powers MD CHIEF COMPLAINT: Follow Up (review CT scan) HPI: Lucia is a 70 year old male with [...] who felt the patient has a hernia. Lucia was referred for evaluation and treatment. CT scan did confirm a left inguinal hernia with the sigmoid colon located within it. PAST MEDICAL HISTORY Diagnosis Date - Encounter for screening colonoscopy 02/15/2016 - Essential hypertension - Other symptoms involving digestive system(787.99) - Unspecified constipation PAST SURGICAL HISTORY Procedure Laterality Date - COLONOSCOP W/ OR W/O [facility] SPEC 01/26/06 - COLONOSCOP W/ OR W/O [facility] SPEC 02/15/2016 - REPAIR UMBILICAL LANA,5+Y/O,REDUC [...] moist, oropharynx is cl (more content not included)...[facility]12-29-2021 NoteHNO ID: [id number] Author: RT Blake(R) Service: ? Author Type: Heavy Duty Diesel Mechanic Type: Progress Notes Filed: 04/14/2021 3:12 PM Note Text: Radiology Service Progress Note PATIENT NAME: Lucia Summers DATE OF SERVICE: April 14, 2021 [...] BY: RT Levi(R) April 14, 2021 3:12 [facility]12-23-2021 NoteHNO ID: [id number] Author: Jadon Powers MD Service: ? Author Type: Physician Type: Progress Notes Filed: 04/13/2021 8:34 AM Note Text: HISTORY AND PHYSICAL Lucia Summers 1950 REFERRING PHYSICIAN: Jean-Paul Maza MD CHIEF COMPLAINT: Consult and Hernia HPI: Lucia is a 70 year old male with [...] who felt the patient has a hernia. Lucia was referred for evaluation and treatment. The patient is being seen by me today at the request of Dr. Jean-Paul Maza MD, MD for my opinion and advice regarding Irreducible left inguinal hernia (primary encounter diagnosis). PAST MEDICAL HISTORY Diagnosis Date - Encounter for screening colonoscopy 02/15/2016 - Essential hypertension - Other symptoms involving digestive system(787.99) - Unspecified constipation PAST SURGICAL HISTORY Procedure Laterality Date - COLONOSCOP W/ OR W/O [facility] SPEC 01/26/06 - COLONOSCOP W/ OR W/O [facility] SPEC 02/15/2016 - REPAIR UMBILICAL LANA,5+Y/O,REDUC [...] entered by the nurse and reviewed by in Nursing Notes: Elizabeth Palacios Ma 04/08/2021 3:55 [...] denies arthritis, or jennifer (more content not included)...[facility] noteNo assessment information availableW[facility] Work Phone: Evaluation note* Diagnosis Onset Date Resolution Status Preoperative cardiovascular examination acute Abnormal ECG chronic Essential (primary) hypertension chronic Interstitial lung disease [facility] Work Phone: Evaluation note* Diagnosis Onset Date Resolution Status Interstitial lung disease [facility] Work Phone: Evaluation note* Diagnosis Onset Date Resolution Status Essential (primary) hypertension chronic Interstitial lung disease [facility] Sleep apnea [facility] Work Phone: Evaluation note* Diagnosis Onset Date Resolution Status Admit Date Essential (primary) hypertension chronic December 05 8:46am Interstitial lung disease chronic December 05, 2024 8:46am Sleep apnea chronic December 05, 2024 8:46am [facility] Work Phone: Reason for referral (narrative)No reason for referral information availableWOhio State [facility]ing [facility] Work Phone: Summary Purpose Family History No Family History Records Found Relationship Condition Age at Onset Recorded Date/T vciky brother Coronary artery disease Unknown Chronic obstructive pulmonary disease Unk nown brother Alcohol abuse Unknown brother Cerebrovascular accident (CVA) Unknown Dissection of aorta Unknown Advance Directives No Advanced Directives Records FoundNo Advanced Directives Records FoundNo Advanced Directives Records Found Chief Complaint and Reason for Visit Chief Complaint PULM DISEASE PULM DISEASE Chief Complaint 1 Y FU Reason for Visit Interstitial lung di sease Chief Complaint 6 M FU E-ORDER Reason for Visit Essential (primary) hypertension Interstitial lung disease Sleep apnea Chief Complaint Admit Date 1 Y FU December 05, 2024 8: 46am Reason for Visit Admit Date Essential (primary) hypertension December 05, 2024 8:46am Interstitial lung disease December 05, 025 8:46am Sleep apnea December 05, 2024 8: 46am Additional Source Comments (unrecognized sect ion and content) No Status Records FoundNo Status Records FoundNo Status Records Found INFORMATION SOURCE (unrecogn ized section and content) DATE CREATED AUTHOR 05/20/2021 [facility] DATE CREATED AUTHOR AUTHOR'S ORGANIZ ATION 07/06/2021 [facility] DATE CREATED AUTHOR AUTHOR'S ORGANIZ ATION 01/17/2025 [facility] Goals (unrecognized section and content) Goals may be documented in a n alternate sectionGoals may be documented in an alternate sectionGoals may be documented in an alternate sectionGoals may be documented in an alternate sectionGoals may be documented in an alternate sectionGoals may be documented in an alternate sectionGoals may be documented in an alternate sectionGoals may be documented in an alternate sectionGoals may be documented in an alternate sectionGoals may be documented in an alternate section Care Teams (unrecognized sec tion and content) Team Status: Active Member Role Status Dates Dr. Jean-Paul Maza MD Family Provider Active Dr. Jean-Paul Maza MD Primary Care Provider Active Team Status: Inactive Member Role Status Dates Dr. Jean-Paul Maza MD Primary Care Provider, Referring Provider Active Dr. Anastacio Banegas MD Attending Provider Active Team Status: Active Member Role Status Dates Dr. Jean-Paul Maza MD Primary Care Provider Active Dr. Saleem Ernst MD Attending Provider Active Dr. Wilber Arias MD Referring Provider Active Team Status: Inactive Member Role Status Dates Dr. Jean-Paul Maza MD Primary Care Provi heike, Attending Provider, Referring Provider Active Team Status: Inactive Member Role Status Dates Dr. Jean-Paul Maza MD Primary Care Provider Active Dr. Wilber Arias MD Attending Provider, Referr ing Provider Active Team Status: Active Member Role Status Dates Dr. Jean-Paul Maza MD Primary Care Provider Active Dr. Anastacio Banegas MD Attending Provider , Referring Provider, Other Provider Active Team Status: Active Member Role Status Dates Dr. Jean-Paul Maza MD Primary Care Provider Active Dr. Anastacio Banegas MD Attending Provider Active Team Status: Inactive Member Role Status Dates Dr. Jean-Paul Maza MD Primary Care Provider Active Dr. Anastacio Banegas MD Attending Provider, Referring Pr ovider Active Team Status: Active Member Role Status Dates Dr. Jean-Paul Maza MD Primary Care Provider Active Dr. Anastacio Banegas MD Attending Provider, Referring Pr ovider Active Team Status: Inactive Member Role Status Dates Dr. Jean-Paul Maza MD Primary Care Provider, Referring Provider Active Daphne Vasquez NP, FIELD RECORDER-C Attending Provider Active Team Status: Inactive Member Role Status Dates Dr. Jean-Paul Maza MD Primary Care Provider, Attending Provider Active Team Status: Active Member Role/Relationship Status Dates Dr. Jean-Paul Maza MD Family Provider Active Dr. Jean-Paul Maza MD Primary Care Provider Active Team Status: Inactive Member Role/Relationship Status Dates Dr. Jean-Paul Maza MD Primary Care Provider Active Start: October 21, 2024 End: October 21, 2024 Dr. Jean-Paul Maza MD Attending Provider Active Start: October 21, 2024 End: October 21, 2024 Dr. Jean-Paul Maza MD Referring Provider Active Start: October 21, 2024 End: October 21, 2024 Team Status: Inactive Member Role/Relationship Status Dates Dr. Jean-Paul Maza MD Primary Care Provider Active Start: December 05, 2024 End: December 05, 2024 Dr. Jean-Paul Maza MD Referring Provider Active Start: December 05, 2024 End: December 05, 2024 Maurisio Rivera NP, FIELD RECORDER-C Attending Provider Active S tart: December 05, 2024 End: December 05, 2024 FOR RECORDS PERTAINING TO PATIENTS WHO ARE [...] BE BASED ON THE PRIMARY CLINICAL RECORDS. [facility] [employer] [facility]. provides no warranty or guarantee of the accuracy or completeness of information in this document.
== END | disposition home or self-care (01) ==
LOC: PSN 09:16
PROVIDERS: PCP Family Medicine; Referring Provider Nurse Practitioner Acute Care; Visit Provider Nurse Practitioner Acute Care
DX: J84.9 Interstitial pulmonary disease, unspecified (principal)
CPT/HCPCS: 94060; 94726; 94729

== ENCOUNTER → 2025-01-21 | Outpatient (CLI) | payer MEDICARE, SELFPAY ==
[2025-01-21 08:37] VITALS: PULSE 71; PULSE 73; PULSE 88; PULSE 89; PULSE 90; PULSE 93; O2SAT 85; O2SAT 88; O2SAT 90; O2SAT 91; O2SAT 92; O2SAT 93; O2SAT 94
--- NOTE | 2025-01-21 08:49 | CPS ---
PATIENT DOES NOT HAVE DME CURRENTLY FOR HIMSELF AT HOME. HIS USES [facility] FOR HER NEEDS. HE BEGAN WALK TESTING ON ROOM AIR. HE WAS RELUCTANT TO PUT OXYGEN ON WHEN SPO2 REACHED 88%, SO WE WENT UNTIL 2 MINUTES OF TESTING, AT WHICH TIME HIS SPO2 WAS 85% RA AND HIS LIPS WERE DUSKY IN COLOR. HE DENIED ANY SOB. SHORT REST BREAK TAKEN TO APPLY 2LPM OXYGEN, WHICH HE WORE FOR THE REMAINDER OF TESTING (LIP COLOR IMPROVED WELL). WE HAD A BRIEF DISCUSSION ABOUT HIS LUNG DISEASE AND THE DANGERS OF CHRONICALLY LOW OXYGEN LEVELS AND BENEFITS OF SUPPLEMENTAL OXYGEN THERAPY. HE WISHES TO FOLLOW UP IN OFFICE PRIOR TO RECEIVING OXYGEN AT HOME, AND SAID HE IS GOING TO CALL TO SEE ABOUT MOVING HIS APPT TO [facility]. WE ALSO DISCUSSED PULMONARY REHAB HE WOULD QUALIFY AND BENEFIT FROM "OUTPATIENT RESPIRATORY SERVICES" (EXERCISE AND DISEASE EDUCATION). HE WAS PROVIDED A BROCHURE AND IS AWARE TO DISCUSS AT FOLLOW UP IF HE IS INTERESTED IN THIS.
--- NOTE | 2025-01-23 08:21 | PCM.PSN.6M ---
PSN 6 Minute Walk Test 6 Minute Walk Test 6 Minute Walk Test: 6 Minute Walk Test PSN:6-Minute Walk Test Start: 01/21/25 08:37 Freq: Status: Active Protocol: [id number] Document 01/21/25 08:37 [facility] (Rec: 01/21/25 09:02 [facility] [id number]) 6 Minute Walk Test Date Performed 01/21/25 Time Performed 08:15 Height 5 ft 6 in Weight: 180 lb Weight in Pounds 180.[address]: Daphne Vasquez DIRECTOR PERSONAL Assistive device None used: Pre-test Oxygen Delivery Room Air Method Pulse Ox (%) 94 Pulse Rate (60-100 73 beats/min) Dyspnea Franky Scale ( 0 0-10) 1st minute Oxygen Delivery Room Air Method Pulse Ox (%) 88 Pulse Rate (60-100 90 beats/min) Dyspnea Franky Scale ( 0 0-10) Number of Rests 0 Taken 2nd minute Oxygen Delivery Room Air Method Pulse Ox (%) 85 Pulse Rate (60-100 93 beats/min) Dyspnea Franky Scale ( 0 0-10) Number of Rests 1 Taken Reported Symptoms Cyanotic 3rd minute Oxygen Flow Rate (L/ 2 min) (L/min) Oxygen Delivery Nasal Cannula Method Pulse Ox (%) 93 Pulse Rate (60-100 88 beats/min) Dyspnea Franky Scale ( 0 0-10) Number of Rests 0 Taken 4th minute Oxygen Flow Rate (L/ 2 min) (L/min) Oxygen Delivery Nasal Cannula Method Pulse Ox (%) 92 Pulse Rate (60-100 89 beats/min) Dyspnea Franky Scale ( 0 0-10) Number of Rests 0 Taken 5th minute Oxygen Flow Rate (L/ 2 min) (L/min) Oxygen Delivery Nasal Cannula Method Pulse Ox (%) 91 Pulse Rate (60-100 90 beats/min) Dyspnea Franky Scale ( 0 0-10) Number of Rests 0 Taken 6th minute Oxygen Flow Rate (L/ 2 min) (L/min) Oxygen Delivery Nasal Cannula Method Pulse Ox (%) 90 Pulse Rate (60-100 93 beats/min) Dyspnea Franky Scale ( 0 0-10) Number of Rests 0 Taken Post-test Oxygen Delivery Room Air Method Pulse Ox (%) 93 Pulse Rate (60-100 71 beats/min) Dyspnea Franky Scale ( 0 0-10) Full Laps Walked 12 Partial Lap, Number 27 of Tiles Walked Total Distance 735 Walked (ft) 01/21/25 08:49 Cardiopulmonary Services by Rachel Rosario PATIENT DOES NOT HAVE DME CURRENTLY FOR HIMSELF AT HOME. HIS USES [facility] FOR HER NEEDS. HE BEGAN WALK TESTING ON ROOM AIR. HE WAS RELUCTANT TO PUT OXYGEN ON WHEN SPO2 REACHED 88%, SO WE WENT UNTIL 2 MINUTES OF TESTING, AT WHICH TIME HIS SPO2 WAS 85% RA AND HIS LIPS WERE DUSKY IN COLOR. HE DENIED ANY SOB. SHORT REST BREAK TAKEN TO APPLY 2LPM OXYGEN, WHICH HE WORE FOR THE REMAINDER OF TESTING (LIP COLOR IMPROVED WELL). WE HAD A BRIEF DISCUSSION ABOUT HIS LUNG DISEASE AND THE DANGERS OF CHRONICALLY LOW OXYGEN LEVELS AND BENEFITS OF SUPPLEMENTAL OXYGEN THERAPY. HE WISHES TO FOLLOW UP IN OFFICE PRIOR TO RECEIVING OXYGEN AT HOME, AND SAID HE IS GOING TO CALL TO SEE ABOUT MOVING HIS APPT TO [facility]. WE ALSO DISCUSSED PULMONARY REHAB HE WOULD QUALIFY AND BENEFIT FROM "OUTPATIENT RESPIRATORY SERVICES" (EXERCISE AND DISEASE EDUCATION). HE WAS PROVIDED A BROCHURE AND IS AWARE TO DISCUSS AT FOLLOW UP IF HE IS INTERESTED IN THIS. Initialized on 01/21/25 08:49 - END OF NOTE Interpretation Interpretation: The patient ambulated 735 feet over the course of 6 minutes beginning on room air without assistive devices. Pretesting oxygen saturation was noted to be 94% on room air. With ambulation, the patient desaturated to 85%, requiring the initiation of 2 L/min to maintain appropriate saturations. Recommendations Recommendations: 2 L/min of supplemental oxygen should be utilized with exertion.
== END | disposition home or self-care (01) ==
LOC: PSN 08:07
PROVIDERS: PCP Family Medicine; Referring Provider Nurse Practitioner Acute Care; Visit Provider Nurse Practitioner Acute Care
DX: J84.9 Interstitial pulmonary disease, unspecified (principal)
CPT/HCPCS: 94618

== ENCOUNTER → 2025-02-07 | Outpatient (CLI) | payer MEDICARE, SELFPAY | END | disposition home or self-care (01) | LOC: CT 17:54 | PROVIDERS: PCP Family Medicine; Referring Provider Nurse Practitioner Acute Care; Visit Provider Nurse Practitioner Acute Care | DX: J84.9 Interstitial pulmonary disease, unspecified (principal) | CPT/HCPCS: 71250 ==

== ENCOUNTER 2025-03-12 11:44 | Outpatient (CLI) | payer MEDICARE, SELFPAY ==
[2025-03-12 13:02] LABS: AST(SGOT) 28 U/L (<=37); Alanine Aminotransfer ALT/SGPT 24 U/L (<=46); Albumin, Serum 4.1 g/dL (3.4-4.8); Alkaline Phosphatase 67 U/L (40-129); Bilirubin, Direct 0.70 mg/dL (0.00-0.30); Globulin 3.8 g/dL (2.2-4.2)
== END 2025-03-12 23:59 | disposition home or self-care (01) ==
LOC: LAB 11:46
PROVIDERS: PCP Family Medicine; Referring Provider Nurse Practitioner Family; Visit Provider Nurse Practitioner Family
DX: I10 Essential (primary) hypertension (principal); J84.170 Interstitial lung disease with progressive fibrotic phenotype in diseases classified elsewhere
CPT/HCPCS: 36415; 80076